=== PATIENT | male | born 1965 | race African-American/Black ===

== ENCOUNTER 2024-01-15 13:48 | Inpatient (IN) | payer SELFPAY ==
[~2024-01-15] VITALS: Ht 182.9 cm; Wt 76.7 kg
--- NOTE | 2024-01-15 14:45 | ED.PDOC ---
History of Present Illness HPI Comments 58 y/o M, with a Hx of CHF, HTN, and morbid obesity, is BIBA for c/o shortness of breath, productive cough, and wheezing, today. Per EMS report, patient endorses on having unprovoked onset of symptoms 2x weeks ago that has been progressively worsening since. Patient was found on scene by EMS staff with wheezing bilaterally in addition to being HTN and was given breathing Tx with relief en route. Upon arrival to ED and time of assessment, EMS states on patient having a blood pressure of 96/62. Patient reports no recent sick contact exposure amidst Hx of vacuum truck driver occupation. He denies any chest pain, dyspnea, hemoptysis, fever, chills or other associated symptoms or modifiers at this time. Chief Complaint: Shortness of Breath Time Seen by MD: 14:20 Reviewed Notes: Nurses Notes, Pneumatic Deicer Inspector Notes, Medications, Allergies Allergies: Coded Allergies: NO KNOWN ALLERGIES (Unverified , 01/15/24) Information Source: Patient, Emergency Med Personnel Mode of Arrival: EMS Severity: Moderate Timing: Weeks Duration: Since onset Prehospital treatment: 12 Lead EKG, Polishing Wheel Repairer, Oxygen Past Medical History PAST MEDICAL HISTORY: CHF, HTN Past Medical History (Other): morbid obesity, childhood-asthma Surgical History: Denies all surgeries Family History Family History: Unknown Social History Smoker: Non-Smoker Alcohol: Denies ETOH Use Drugs: Denies Drug Use Lives In: Home Respiratory: reports: cough, shortness of breath, wheezing All Other Systems: Reviewed and Negative (negative unless otherwise stated in HPI) Physical Exam General Appearance: Moderate Distress, Obese HEENT: Normal ENT Inspection, Pharynx Normal, TMs Normal Neck: Full Range of Motion, Non-Tender, Normal, Normal Inspection Respiratory: Chest Non-Tender, No Accessory Muscle Use, Other (Coarse breath sounds) Cardiovascular: No Edema, No JVD, No Murmur, No Gallop, Normal Peripheral Pulses, Regular Rate/Rhythm Breast Exam: Deferred Gastrointestinal: No Organomegaly, Non Tender, No Pulsatile Mass, Normal Bowel Sounds, Soft Genitalia: Deferred Pelvic: Deferred Rectal: Deferred Extremities: Pedal edema, Swelling (Bilateral lower extremity) Musculoskeletal : Apperance: Normal Neurologic: Alert Cerebellar Function: NOT DONE Reflexes: NOT DONE Skin: Normal Color Peripheral Pulses: 3+ Radial (R), 3+ Radial (L) Lymphatic: No Adenopathy Was a procedure done? Was a procedure done?: No Differential Dx Considerations may include: WA, ACS, PE, PNA, angina, anxiety, costochondritis, pericarditis, gastritis, gastroenteritis, URI X-Ray, Labs, Meds, VS Vital Signs Date Time Temp Pulse Resp B/P (MAP) Pulse Ox O2 Delivery O2 Flow Rate FiO2 01/15/24 13:55 94 01/15/24 13:50 98.2 98 24 158/116 (130) 97 Lab Test 01/15/24 14:19 Range/Units White Blood Count 8.1 4.4-10.8 10^3/uL Red Blood Count 5.59 4.5-5.90 10^6/uL Hemoglobin 14.8 13.5-17.5 g/dL Hematocrit 45.0 41.0-53.0 % Mean Corpuscular Volume 80.5 80.0-100.0 fL Mean Corpuscular Hemoglobin 26.5 L 28.0-32.0 pg Mean Corpuscular Hemoglobin Concent 32.9 32.0-36.0 g/dL Red Cell Distribution Width 15.6 H 11.8-14.3 % Platelet Count 366 140-450 10^3/uL Mean Platelet Volume 8.3 6.9-10.8 fL Neutrophils (%) (Auto) 68.4 37.0-80.0 % Lymphocytes (%) (Auto) 20.0 10.0-50.0 % Monocytes (%) (Auto) 9.1 0.0-12.0 % Eosinophils (%) (Auto) 1.3 0.0-7.0 % Basophils (%) (Auto) 1.2 0.0-2.0 % Neutrophils # (Auto) 5.5 1.6-8.6 10 ^3/uL Lymphocytes # (Auto) 1.6 0.4-5.4 10 ^3/uL Monocytes # (Auto) 0.7 0-1.3 10 ^3/uL Eosinophils # (Auto) 0.1 0-0.8 10 ^3/uL Basophils # (Auto) 0.1 0-0.2 10 ^3/uL Nucleated Red Blood Cells 0.3 % Sodium Level 141 136-145 mmol/L Potassium Level 4.8 3.5-5.1 mmol/L Chloride Level 105 98-107 mmol/L Carbon Dioxide Level 25 20-31 mmol/L Anion Gap 11 5-15 Blood Urea Nitrogen 18 9-23 mg/dL Creatinine 0.96 0.700-1.30 mg/dL Glomerular Filtration Rate Calc 92 >90 mL/min BUN/Creatinine Ratio 18.8 10.0-20.0 Serum Glucose 109 H 74-106 mg/dL Calcium Level 9.8 8.7-10.4 mg/dL Troponin I High Sensitivity 302 *H </=54 ng/L B-Type Natriuretic Peptide 3523.52 0-100 pg/mL Patient alert pain Complaining of shortness a breath. He is obese. Chest discomfort while walking. Blood pressure elevated pain Does not take care himself. Was given Lasix pain Bilateral lower extremity swelling. Chronic condition. CHF. Reviewed his previous visit. EKG reviewed does not show any acute changes. Explained to the patient. Continuous monitoring analyst. [place] [id number] Ph: [phone] DIAGNOSTIC IMAGING Diagnostic Imaging Report : [id number] Signed PATIENT: Lexx Ledesma ACCT: [id number] UNIT: [id number] : 1965 LOC: ER ROOM / BED: / AGE / SEX: 58 / M ADM STATUS: REG ER SERVICE 135 ORDERING PHYSICIAN: KHUSHI LEON MD PROCEDURE(s): CXRP - CHEST PORTABLE REASON: sob ORDER NUMBER(s): [id number], ACCESSION NUMBER(s): [id number] EXAM: XY CHEST PORTABLE Indication: sob Technique: Single frontal view of the chest was obtained Comparison: None FINDINGS: Lines and Tubes: None Lungs: No focal consolidation. Pleura: No effusion. No pneumothorax. Cardiomediastinal contours: Unremarkable Bones: No acute osseous abnormality. IMPRESSION: No acute cardiopulmonary disease. ATED BY: LARRY PACHECO MD DICTATED DATE/TIME: 01/15/241457 SIGNED BY: LARRY PACHECO MD SIGNED DATE/TIME: 01/15/241457 CC: Time of 1ST Reevaluation: 14:50 Reevaluation 1ST: Unchanged Patient Education/Counseling: Diagnosis, Treatment Family Education/Counseling: No Family Present Departure 1 Departure Time of Disposition: 14:51 Impression: Primary Impression: CHF (congestive heart failure) Qualified Codes: I50.43 - Acute on chronic combined systolic (congestive) and diastolic (congestive) heart failure Additional Impressions: HTN (hypertension) Qualified Codes: I10 - Essential (primary) hypertension NSTEMI (non-ST elevated myocardial infarction) Disposition: ADMITTED INPATIENT Admit to: Med Surg Condition: Guarded Critical Care Note Critical Care Time?: Yes (45 min-critical care time only) Stability Stability form required: No Heart Score Heart Score: Heart Score Response (Comments) Value History Moderate Suspicious 1 EKG Normal 0 Age 45-64 1 Risk Factors >3 or Hx ASHD 2 Troponin Normal limit 0 Total 4 I personally scribed for KHUSHI LEON MD ([email or web address]) on 01/15/24 at 14:45. Electronically submitted by Enrico Castillo ([email or web address]). I personally scribed for KHUSHI LEON MD (MAR) on 01/15/24 at 15:32. Electronically submitted by Enrico Castillo ([email or web address]). I personally scribed for KHUSHI LEON MD (MAR) on 01/15/24 at 17:01. Electronically submitted by Enrico Castillo ([email or web address]). KHUSHI LEON MD Jan 15, 2024 14:45
[2024-01-15 14:58] LABS: Basophils # (auto) 0.1 10 ^3/uL (0-0.2); Eosinophils # (auto) 0.1 10 ^3/uL (0-0.8); Lymphocytes # (auto) 1.6 10 ^3/uL (0.4-5.4)
--- NOTE | 2024-01-15 14:59 | DVH ---
EXAM: XY CHEST PORTABLE Indication: sob Technique: Single frontal view of the chest was obtained Comparison: None FINDINGS: Lines and Tubes: None Lungs: No focal consolidation. Pleura: No effusion. No pneumothorax. Cardiomediastinal contours: Unremarkable Bones: No acute osseous abnormality. IMPRESSION: No acute cardiopulmonary disease.
[2024-01-15 15:00] LABS: Basophils % (auto) 1.2 % (0.0-2.0); Eosinophils % (auto) 1.3 % (0.0-7.0); Hemoglobin 14.8 g/dL (13.5-17.5); Mean Corpuscular Hemoglobin 26.5 pg (28.0-32.0); Mean Corpuscular Hgb Conc. 32.9 g/dL (32.0-36.0); Mean Corpuscular Volume 80.5 fL (80.0-100.0); Monocytes # (auto) 0.7 10 ^3/uL (0-1.3); Monocytes % (auto) 9.1 % (0.0-12.0); Neutrophils # (auto) 5.5 10 ^3/uL (1.6-8.6); Neutrophils % (auto) 68.4 % (37.0-80.0); Nucleated Red Blood Cells % 0.3 %; Platelet Count (auto) 366 10^3/uL (140-450); Red Blood Cells 5.59 10^6/uL (4.5-5.90); Red Cell Distribution Width 15.6 % (11.8-14.3); White Blood Cell 8.1 10^3/uL (4.4-10.8)
[2024-01-15 15:03] LABS: Chloride 105 mmol/L (98-107); Potassium 4.8 mmol/L (3.5-5.1); Sodium 141 mmol/L (136-145)
[2024-01-15 15:04] LABS: Anion Gap 11 (5-15); Calcium 9.8 mg/dL (8.7-10.4); Carbon Dioxide 25 mmol/L (20-31)
[2024-01-15 15:09] LABS: BUN/Creatinine Ratio 18.8 (10.0-20.0); Blood Urea Nitrogen 18 mg/dL (9-23)
[2024-01-15 15:10] LABS: Glucose 109 mg/dL (74-106)
[2024-01-15] MEDS ORDERED: NITROGLYCERIN 0.4 MG SL TAB SL PRN ×2 (18:15)
[2024-01-15] MEDS ORDERED: ONDANSETRON HCL 4 MG/2 ML VIAL IV PRN (18:15)
[2024-01-15] MEDS ORDERED: ACETAMINOPHEN 325 MG TAB PO PRN (18:15)
[2024-01-15] MEDS ORDERED: MORPHINE SULFATE 4 MG/ML SYR/VIAL IV PRN (18:15)
[2024-01-15] MEDS ORDERED: MORPHINE SULFATE INJ 2 MG/ml SYRG IV PRN (18:15)
[2024-01-15] MEDS ORDERED: ZOLPIDEM TARTRATE 5 MG TAB PO PRN (18:15)
[2024-01-15] MEDS ORDERED: MAALOX PLUS or MAALOX 30 ML PO PRN (18:15)
[2024-01-15] MEDS ORDERED: LORazepam 0.5 MG TAB PO PRN (18:15)
--- NOTE | 2024-01-15 18:21 | DVHHP2 ---
History of Present Illness Reason for Visit: Acute on chronic CHF History of Present Illness 58-year-old morbidly obese male with a past medical history of CHF hypertension hyperlipidemia comes to the ED with complaints of cough shortness of breath which has been progressively getting worse patient states that his symptoms have worsened in his shortness of breath has worsened over the past 2 weeks associated with difficulty breathing and inability to ambulate at rest patient was evaluated in the ED and found to be hypotensive as well as hypoxic patient was recommended for evaluation and continued management and inpatient setting as per ED recommendations Cardiovascular: CHF, HTN, hyperipidemia Review of Systems Constitutional: Yes: Weakness; No: Fever, Chills, Sweats, Malaise, Other Eyes: No: Pain, Vision change, Conjunctivae inflammation, Eyelid inflammation, Other, Redness ENT: No: Ear pain, Ear discharge, Nose pain, Nose discharge, Nose congestion, Mouth pain, Mouth swelling, Throat pain, Throat swelling, Other Respiratory: No: Cough, Dry, Shortness of breath, SOB with excertion, Wheezing, Hemoptysis, Pleuritic Pain, Sputum, Wheezing, Other Cardiovascular: No: Chest Pain, Palpitations, Orthopnea, Paroxysmal Noc. Dyspnea, Edema, Lt Headedness, Other Gastrointestinal: No: Nausea, Vomiting, Abdominal Pain, Diarrhea, Constipation, Melena, Hematochezia, Other Genitourinary: No Dysuria, No Frequency, No Incontinence, No Hematuria, No Retention, No Other Musculoskeletal: No: other, neck pain, shoulder pain, arm pain, back pain, hand pain, leg pain, foot pain Skin: No: Rash, Lesions, Jaundice, Bruising, Other Neurological: No: Weakness, Numbness, Incoordination, Change in speech, Confusion, Seizures, Other Allergies: Coded Allergies: NO KNOWN ALLERGIES (Unverified , 01/15/24) Exam Vital Signs Vital Signs Date Time Temp Pulse Resp B/P (MAP) Pulse Ox O2 Delivery O2 Flow Rate FiO2 01/15/24 13:55 94 01/15/24 13:50 98.2 24 158/116 (130) 97 General Appearance: Alert, Oriented X3, mild distress HEENT: Atraumatic, PERRLA Respiratory: Clear to auscultation (Bilateral rhonchi mild), Normal air movement Cardiovascular: Regular rate, Normal S1 Abdominal: Normal bowel sounds, Soft, No tenderness Extremities: No clubbing, No cyanosis, No edema Skin: No rashes, No breakdown Neuro: Normal gait, Normal speech Psych/Mental Status: Mood NL Labs/Xrays Labs Test 01/15/24 14:19 Range/Units White Blood Count 8.1 4.4-10.8 10^3/uL Red Blood Count 5.59 4.5-5.90 10^6/uL Hemoglobin 14.8 13.5-17.5 g/dL Hematocrit 45.0 41.0-53.0 % Mean Corpuscular Volume 80.5 80.0-100.0 fL Mean Corpuscular Hemoglobin 26.5 L 28.0-32.0 pg Mean Corpuscular Hemoglobin Concent 32.9 32.0-36.0 g/dL Red Cell Distribution Width 15.6 H 11.8-14.3 % Platelet Count 366 140-450 10^3/uL Mean Platelet Volume 8.3 6.9-10.8 fL Neutrophils (%) (Auto) 68.4 37.0-80.0 % Lymphocytes (%) (Auto) 20.0 10.0-50.0 % Monocytes (%) (Auto) 9.1 0.0-12.0 % Eosinophils (%) (Auto) 1.3 0.0-7.0 % Basophils (%) (Auto) 1.2 0.0-2.0 % Neutrophils # (Auto) 5.5 1.6-8.6 10 ^3/uL Lymphocytes # (Auto) 1.6 0.4-5.4 10 ^3/uL Monocytes # (Auto) 0.7 0-1.3 10 ^3/uL Eosinophils # (Auto) 0.1 0-0.8 10 ^3/uL Basophils # (Auto) 0.1 0-0.2 10 ^3/uL Nucleated Red Blood Cells 0.3 % Sodium Level 141 136-145 mmol/L Potassium Level 4.8 3.5-5.1 mmol/L Chloride Level 105 98-107 mmol/L Carbon Dioxide Level 25 20-31 mmol/L Anion Gap 11 5-15 Blood Urea Nitrogen 18 9-23 mg/dL Creatinine 0.96 0.700-1.30 mg/dL Glomerular Filtration Rate Calc 92 >90 mL/min BUN/Creatinine Ratio 18.8 10.0-20.0 Serum Glucose 109 H 74-106 mg/dL Calcium Level 9.8 8.7-10.4 mg/dL Troponin I High Sensitivity 302 *H </=54 ng/L B-Type Natriuretic Peptide 3523.52 0-100 pg/mL Assessment/Plan Assessment/Plan Admit to [facility] Suspected Acute on chronic combined CHF exacerbation Possible NSTEMI versus troponinemia in the setting of cardiac stress for CHF Hypertension BNP greater than 3500 Troponin greater than 300 Trend troponins x3 and evaluated for an up trend Cardiology consult Chest pain protocol Diuretics management Patient will likely require fluids and simultaneously required diuretics for 3rd spacing management Chest x-ray showing no acute signs of cardiopulmonary disease However increased cardiac size noted Plan discussed with: Patient Problem List: (1) CHF (congestive heart failure) (2) NSTEMI (non-ST elevated myocardial infarction) (3) HTN (hypertension) Date of Service: Jan 15, 2024 Billing Provider: HONEY NORIEGA MD Common Visit Codes: 34548-[id number] INP/OBS CARE (HIGH) HONEY NORIEGA MD Jan 15, 2024 18:21
[2024-01-15] MEDS: ASPirin 325 MG TAB PO STA (20:22)
[2024-01-15 20:25] VITALS: O2SAT 98
[2024-01-16] VITALS (11 sets, daily range): BP systolic 137–166; BP diastolic 93–112; PULSE 81–99; RESP 18–22; TEMP 97.3–98.5; O2SAT 94–100
[2024-01-16] MEDS: ATORVASTATIN 20 MG TAB PO SCH (00:24)
[2024-01-16] MEDS: METOPROLOL TARTRATE 25 MG TAB PO SCH ×2 (00:30→21:45)
--- NOTE | 2024-01-16 06:42 | ECG ---
[facility] Test Date: 2024-01-15 Test Time: 13:55:36 Pat Name: ALMA TERRY Department: ED Room: 0294T A Gender: M Carry Out Clerk: IWONA : 1965 Requested By: KHUSHI LEON Order Number: [id number] Reading MD: Adalid Unger Measurements Intervals [place] Rate: 94 P: 10 GA: 183 QRS: -26 QRSD: 91 T: 159 QT: 423 QTc: 530 Interpretive Statements Sinus rhythm Probable left atrial enlargement Borderline left axis deviation Abnormal R-wave progression, late transition Nonspecific T abnormalities, lateral leads Prolonged QT interval Electronically Signed On 01-18-2024 12:39:05 PST by Adalid Unger Please click the below link to view image of tracing.
[2024-01-16] MEDS: DOCUSATE SOD 100 MG CAP PO SCH (08:52)
[2024-01-16] MEDS: ASPirin 81 mg TAB PO SCH (08:52)
[2024-01-16] MEDS: LISINOPRIL 5 MG TAB PO SCH (08:57)
[2024-01-16 09:07] LABS: Basophils # (auto) 0.1 10 ^3/uL (0-0.2); Lymphocytes # (auto) 1.7 10 ^3/uL (0.4-5.4); Monocytes # (auto) 0.7 10 ^3/uL (0-1.3)
[2024-01-16 09:09] LABS: Basophils % (auto) 0.9 % (0.0-2.0); Eosinophils # (auto) 0.2 10 ^3/uL (0-0.8); Eosinophils % (auto) 1.8 % (0.0-7.0); Hematocrit 43.9 % (41.0-53.0); Hemoglobin 14.5 g/dL (13.5-17.5); Lymphocytes % (auto) 20.3 % (10.0-50.0); Mean Corpuscular Hemoglobin 26.4 pg (28.0-32.0); Mean Corpuscular Volume 80.2 fL (80.0-100.0); Monocytes % (auto) 8.7 % (0.0-12.0); Neutrophils # (auto) 5.8 10 ^3/uL (1.6-8.6); Neutrophils % (auto) 68.3 % (37.0-80.0); Nucleated Red Blood Cells % 0.2 %; Platelet Count (auto) 377 10^3/uL (140-450); Red Blood Cells 5.48 10^6/uL (4.5-5.90); Red Cell Distribution Width 15.7 % (11.8-14.3); White Blood Cell 8.5 10^3/uL (4.4-10.8)
[2024-01-16] MEDS ORDERED: hydrALAZINE HCL 20 MG/ML VL IV PRN (09:15)
[2024-01-16 09:17] LABS: Anion Gap 5 (5-15); Calcium 9.7 mg/dL (8.7-10.4); Carbon Dioxide 27 mmol/L (20-31); Potassium 4.8 mmol/L (3.5-5.1); Sodium 141 mmol/L (136-145)
[2024-01-16 09:23] LABS: Magnesium 2.1 mg/dL (1.6-2.6); Triglycerides 68 mg/dL (< 150)
[2024-01-16 09:24] LABS: Blood Urea Nitrogen 24 mg/dL (9-23); Chloride 109 mmol/L (98-107); Cholesterol 114 mg/dL (< 200); Glucose 117 mg/dL (74-106); LDL Cholesterol 73 mg/dL (< 100)
[2024-01-16 09:26] LABS: HDL Cholesterol 30 mg/dL (40-59)
--- NOTE | 2024-01-16 10:12 | DVHINCON2 ---
Date Seen: Jan 16, 2024 Referring Physician MD Yessy Reason for Consultation Chest pain and elevated troponin History of Present Illness This is a 58-year-old male patient who presents to the emergency room with chief complaint of shortness of breath and cough for approximately 10 days. The patient denies any chest pain. He admits to dyspnea on exertion as well as orthopnea. 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 He comes to the emergency room for further evaluation. Initial twelve lead electrocardiogram reveals normal sinus rhythm with nonspecific ST changes to lateral leads in prolonged QTc interval. Initial troponin level of 302ng/L with downtrend thereafter. Initial BNP level of 3523.52pg/mL. Significant past medical history includes asthma, pancreatitis in 2017, tobacco use, and obesity. The patient denies any previous cardiac history. He reports that he does not see a primary care physician regularly and the last time he was seen by a provider was in 2017 when he was diagnosed with pancreatitis and hospitalized. Past Medical History Past medical history reviewed. No other significant than mentioned above. Past Surgical History Denies all previous surgeries Family History: Patient reports no known family medical history. Family History Family history reviewed. Social History Patient has a 45 pack-year history, smokes one pack per day Denies all illicit drug use Denies any alcohol use Allergies: Coded Allergies: NO KNOWN ALLERGIES (Unverified , 01/15/24) Home Meds No Active Prescriptions or Reported Meds Home Meds Denies taking any prescribed home medications Current Medications Current Medications Medications (Trade) Dose Ordered Sig/Von Route PRN Reason Start Time Stop Time Status Last Admin Aspirin 81 mg DAILY PO 01/16/24 10:00 01/16/24 08:52 Aspirin 325 mg PC STAT PO 01/15/24 18:11 01/15/24 19:05 DC 01/15/24 20:22 Atorvastatin Calcium (Lipitor) 40 mg HS PO 01/15/24 22:00 01/16/24 00:24 Metoprolol Tartrate (Lopressor Tablet) 12.5 mg Q12HR PO 01/15/24 22:00 01/16/24 08:55 Morphine Sulfate 2 mg Q30MP PRN IV FOR CHEST PAIN 01/15/24 18:15 01/15/24 19:06 DC Acetaminophen (Tylenol Tablet) 650 mg Q6HP PRN PO MILD PAIN (1-3 PAIN SCALE) 01/15/24 18:15 Zolpidem Tartrate (Ambien) 5 mg QHSP PRN PO FOR INSOMNIA 01/15/24 18:15 Lorazepam (Ativan Tablet) 0.5 mg Q6HP PRN PO ANXIETY 01/15/24 18:15 Docusate Sodium (Colace Capsule) 100 mg DAILY PO 01/16/24 10:00 01/16/24 08:52 Nitroglycerin (Ntrostat Sublingual) 0.4 mg Q5MINP PRN SL FOR CHEST PAIN 01/15/24 18:15 01/15/24 19:06 DC Ondansetron HCl (Zofran) 4 mg Q4HP PRN IV NAUSEA / VOMITING 01/15/24 18:15 Al Hydrox/Mg Hydrox/Simethicone (Maalox Plus) 30 ml Q6HR PRN PO FOR STOMACH DISTRESS 01/15/24 18:15 Lisinopril (Zestril Tablet) 10 mg DAILY PO 01/16/24 10:00 Nitroglycerin (Ntrostat Sublingual) 0.4 mg Q5MINP PRN SL FOR CHEST PAIN 01/15/24 18:15 Morphine Sulfate 2 mg Q30M PRN IV FOR CHEST PAIN 01/15/24 18:15 Hydralazine HCl (Apresoline Injection) 10 mg Q6HP PRN IV SBP>150 01/16/24 09:15 Review of Systems Constitutional: No symptom reported Ears, Nose, & Throat: No symptom reported Eyes: No symptom reported Neurological: No symptoms reported Pulmonary/Respiratory: Shortness of breath, orthopnea, cough Cardiovascular: No symptom reported Gastrointestinal: No symptom reported Genitourinary: No symptom reported Musculoskeletal: No symptom reported Skin: No symptom reported Psychiatric: No symptom reported Endocrine: No symptom reported Hematologic/Lymphatic: No symptom reported Vital Signs Vital Signs Date Time Temp Pulse Resp B/P (MAP) Pulse Ox O2 Delivery O2 Flow Rate FiO2 01/16/24 08:55 85 150/106 01/16/24 08:33 98.2 21 100 98.2 01/16/24 02:52 Nasal Cannula* 2 28 Physical Exam General Appearance: Cooperative. Obese Pulmonary/Respiratory: Bilateral upper lobe wheezing Cardiovascular/Chest: Regular rate and rhythm. Peripheral Pulses: 2+ Radial (R). 2+ Radial (L). 1+ Pedal (R). 1+ Pedal (L) Abdominal Exam: Normal bowel sounds. Ankle Exam: 4+ pitting edema to bilateral ankles Lower extremities: 4+ pitting edema to bilateral feet Neuro/Mental Status: A/OX4, coherent. Thoughts/Psych: Normal thought pattern. Appropriate mood and affect. Good judgment and insight. Appearance: No acute distress. Skin Exam: Open wound to right calf. Skin warm and dry Labs/Diagnostic Data Labs Test 01/16/24 08:38 01/15/24 20:48 01/15/24 14:19 Range/Units White Blood Count 8.5 4.4-10.8 10^3/uL Red Blood Count 5.48 4.5-5.90 10^6/uL Hemoglobin 14.5 13.5-17.5 g/dL Hematocrit 43.9 41.0-53.0 % Mean Corpuscular Volume 80.2 80.0-100.0 fL Mean Corpuscular Hemoglobin 26.4 L 28.0-32.0 pg Mean Corpuscular Hemoglobin Concent 33.0 32.0-36.0 g/dL Red Cell Distribution Width 15.7 H 11.8-14.3 % Platelet Count 377 140-450 10^3/uL Mean Platelet Volume 8.2 6.9-10.8 fL Neutrophils (%) (Auto) 68.3 37.0-80.0 % Lymphocytes (%) (Auto) 20.3 10.0-50.0 % Monocytes (%) (Auto) 8.7 0.0-12.0 % Eosinophils (%) (Auto) 1.8 0.0-7.0 % Basophils (%) (Auto) 0.9 0.0-2.0 % Neutrophils # (Auto) 5.8 1.6-8.6 10 ^3/uL Lymphocytes # (Auto) 1.7 0.4-5.4 10 ^3/uL Monocytes # (Auto) 0.7 0-1.3 10 ^3/uL Eosinophils # (Auto) 0.2 0-0.8 10 ^3/uL Basophils # (Auto) 0.1 0-0.2 10 ^3/uL Nucleated Red Blood Cells 0.2 % Sodium Level 141 136-145 mmol/L Potassium Level 4.8 3.5-5.1 mmol/L Chloride Level 109 H 98-107 mmol/L Carbon Dioxide Level 27 20-31 mmol/L Anion Gap 5 5-15 Blood Urea Nitrogen 24 H 9-23 mg/dL Creatinine 1.09 0.700-1.30 mg/dL Glomerular Filtration Rate Calc 79 >90 mL/min BUN/Creatinine Ratio 22.0 H 10.0-20.0 Serum Glucose 117 H 74-106 mg/dL Calcium Level 9.7 8.7-10.4 mg/dL Magnesium Level 2.1 1.6-2.6 mg/dL Triglycerides Level 68 < 150 mg/dL Cholesterol Level 114 < 200 mg/dL LDL Cholesterol 73 < 100 mg/dL HDL Cholesterol 30 L 40-59 mg/dL Thyroid Stimulating Hormone (TSH) 0.94 0.55-4.78 uIU/mL Troponin I High Sensitivity 269 *H </=54 ng/L B-Type Natriuretic Peptide 3523.52 0-100 pg/mL Assessment Rule out structural heart disease Hypertensive urgency NSTEMI type II secondary to above Type II diabetes mellitus, newly diagnosed Tobacco use Morbid obesity Plan/Recommendation We will continue with the following plan/recommendations (Dr. Herron): * Echocardiogram to evaluate cardiac function * Aggressive BP control * Aggressive diuresis as tolerated * Strict intake and output, daily weights, maintain fluid restriction * Cardiac surveillance Patient seen and examined at bedside with . Thank you for allowing us to care for this patient. Please call with any questions or concerns. Critical care time spent: 41 minutes This medical document was created using an electronic medical record system with voice recognition software and computerized dictation system. Although this document has been carefully reviewed, there might still be some phonetic and typographical errors. Occasional wrong-word or ``sound-alike substitutions may have occurred due to the inherent limitations of voice recognition software. These areas are purely typographical due to imperfections of the software programs and do not reflect any compromise in the patient's medical care. Please read the chart carefully and recognize, using context, where these substitutions have occurred. Plan discussed with: Patient Date of Service: Jan 16, 2024 Billing Provider: GERONIMO HERRON MD Cardiology Common Codes: 02909-[id number] INP/OBS CARE (High) Cardiology Consultation Codes: [id number] CONSULT <45MIN BILL GARZA Jan 16, 2024 10:12
[2024-01-16] MEDS: FUROSEMIDE 20 MG/2 ML VIAL IV ONE (10:35)
--- NOTE | 2024-01-16 14:43 | DVHPN2 ---
Assessment/Plan Assessment/Plan Progress note Subjective 58-year-old male smoker admitted for new onset heart failure. Objective Physical exam Alert, oriented x3 PERRLA Morbidly obese Distant lung sounds Distant heart sounds Abdomen soft nontender, no organomegaly Moving all four extremities Bilateral lower extremity edema to thigh with blisters Lab Troponin 302 BNP 3500 LDL 73 A1c 6.6 EKG NSR with nonspecific STT wave abnormalities Imaging Chest x-ray clear Echo pending Assessment and plan Acute hypoxic respiratory failure Acute decompensated heart failure New onset heart failure Hypertensive urgency Hypertensive heart disease Smoker Morbidly obese Type 2 diabetes Type 2 [place] demand ischemia Possible sleep apnea Maintain SpO2 above 90% Telemetry IV Lasix, target -1-2 L Start Jardiance Switch metoprolol tartrate to succinate Nicotine replacement therapy Insulin sliding scale, fingerstick x4 Strict I&O Daily weights Obtain echo Cardiac consult appreciated BiPAP at night Replete electrolytes Diet healthy, diabetic DVT prophylaxis Lovenox Plan discussed with: Patient My Orders Orders - TASHIA BOWER MD Procedure Category Date Status Time * Wound Consult CONS 01/16/24 Transmitted Date of Service: Jan 16, 2024 Billing Provider: TASHIA BOWER MD Common Visit Codes: [id number] INP/OBS CARE(HIGH) TASHIA BOWER MD Jan 16, 2024 14:43
--- NOTE | 2024-01-16 17:08 | DVHSR ---
APPROVED REPORT EXAM: Two-dimensional and M-mode echocardiogram with Doppler and color Doppler. Blood Pressure: 149/100 mmHg INDICATION evaluate cardiac function RISK FACTORS Obesity: Height: 6'0, Weight: 328 DIMENSIONS LVDd6.0 (3.8-5.7cm)LA (2D)4.2 (1.9-4.0cm)Aortic Root4.3 (2.0-3.7cm) LVDs5.6 (2.5-4.0cm)LA (MM) (1.9-4.0cm)Aortic Cusp Exc1.8 (1.5-2.0cm) EF (%) 15.0 (55-70%)Rt. Atrium5.0 (1.9-4.0cm)Asc. Aorta3.7 cm IVSd1.0 (0.7-1.1cm)RV (D) (1.8-2.4cm) PWd1.2 (0.7-1.1cm) Mitral Valve MitralMitral Stenosis E wave0.92m/sMV Mean GR.mmHg A wave0.82m/sMV Peak GR.67mmHg E/A ratio1.12D MVAcm2 DECEL [id number] 1/2 Timems Aortic Valve Aortic ValveAortic Stenosis V10.63m/Morris Mean GR.3mmHg V21.17m/Morris Peak GR.6mmHg LVOT Diameter2.4 (1.8-2.4cm)Doppler AVA2.43cm2 AI P 1/2 Lwoa144.38ms Pulmonic Valve V20.73m/s Tricuspid Valve TR Velocity2.65m/s [id number] Conclusion Severely dilated left ventricle. Severely reduced left ventricular systolic function with estimated ejection fraction of 15%. There is global wall akinesia. There is a grade 2diastolic dysfunction. Severely reduced right ventricular systolic function. Moderately elevated right ventricular systoli c pressure is45 mm of mercury. Moderately dilated right and left atria. There is moderately severe aortic valve regurgitation. There is [id number] mitral valve regurgitation. There is [id number] tricuspid valve regurgitation. The pulmonary valve is grossly normal. No pericardial effusion.
[2024-01-16] MEDS: FUROSEMIDE 20 MG/2 ML VIAL IV SCH (17:32)
[2024-01-16] MEDS: SENNA 8.6 MG TAB PO SCH (21:39)
[2024-01-17] VITALS (8 sets, daily range): BP systolic 124–160; BP diastolic 57–114; PULSE 68–93; RESP 16–20; TEMP 97.8–98.8; O2SAT 98–100
[2024-01-17 06:12] LABS: Basophils # (auto) 0.1 10 ^3/uL (0-0.2); Lymphocytes # (auto) 1.5 10 ^3/uL (0.4-5.4); Mean Corpuscular Hemoglobin 25.9 pg (28.0-32.0); Monocytes # (auto) 0.7 10 ^3/uL (0-1.3)
[2024-01-17 06:14] LABS: Basophils % (auto) 0.7 % (0.0-2.0); Eosinophils # (auto) 0.3 10 ^3/uL (0-0.8); Eosinophils % (auto) 3.2 % (0.0-7.0); Hematocrit 41.6 % (41.0-53.0); Hemoglobin 13.4 g/dL (13.5-17.5); Lymphocytes % (auto) 19.4 % (10.0-50.0); Mean Corpuscular Hgb Conc. 32.1 g/dL (32.0-36.0); Mean Corpuscular Volume 80.8 fL (80.0-100.0); Neutrophils # (auto) 5.4 10 ^3/uL (1.6-8.6); Neutrophils % (auto) 67.7 % (37.0-80.0); Nucleated Red Blood Cells % 0.3 %; Platelet Count (auto) 354 10^3/uL (140-450); Red Blood Cells 5.15 10^6/uL (4.5-5.90); Red Cell Distribution Width 15.5 % (11.8-14.3)
[2024-01-17 06:22] LABS: Anion Gap 6 (5-15); Carbon Dioxide 29 mmol/L (20-31); Chloride 107 mmol/L (98-107); Potassium 4.9 mmol/L (3.5-5.1); Sodium 142 mmol/L (136-145)
[2024-01-17 06:23] LABS: Calcium 9.2 mg/dL (8.7-10.4)
[2024-01-17 06:30] LABS: Phosphorus 4.6 mg/dL (2.4-5.1)
[2024-01-17 06:36] LABS: Glucose 120 mg/dL (74-106)
[2024-01-17 07:49] LABS: BUN/Creatinine Ratio 19.8 (10.0-20.0); Blood Urea Nitrogen 20 mg/dL (9-23)
--- NOTE | 2024-01-17 10:08 | DVHPN2 ---
Consult Progress Note Subjective Other Systems: Patient remains in normal sinus rhythm on continuous engine monitor. Objective vital signs Vital Sign Date Time Temp Pulse Resp B/P (MAP) Pulse Ox O2 Delivery O2 Flow Rate FiO2 01/17/24 09:00 97.9 85 20 142/57 (85) 100 97.9 01/16/24 20:00 Nasal Cannula* 3 32 Total Intake and Output 01/16/24 01/16/24 01/17/24 15:00 23:00 07:00 Intake Total 800 ml 1300 ml Output Total 1200 ml 900 ml Balance -400 ml 400 ml medications Current Medications Medications Dose Ordered Sig/Von Route Start Time Stop Time Status Last Admin Dose Admin Aspirin 81 mg DAILY PO 01/16/24 10:00 01/16/24 08:52 81 MG Atorvastatin Calcium 40 mg HS PO 01/15/24 22:00 01/16/24 21:42 40 MG Acetaminophen 650 mg Q6HP PRN PO 01/15/24 18:15 Al Hydrox/Mg Hydrox/Simethicone 30 ml Q6HR PRN PO 01/15/24 18:15 Furosemide 20 mg BIDD IV 01/16/24 18:00 01/17/24 06:23 20 MG Empaglifozin 10 mg DAILY PO 01/17/24 10:00 Sennosides 8.6 mg HS PO 01/16/24 22:00 01/16/24 21:39 8.6 MG Polyethylene Glycol 17 gm DAILY PO 01/17/24 10:00 Metoprolol Succinate 25 mg DAILY PO 01/17/24 10:00 Sacubitril/ Valsartan 1 tab BID PO 01/17/24 10:00 UNV Spironolactone 25 mg DAILY PO 01/17/24 10:00 Examination: GENERAL:Normal, LUNGS:Normal, CVS:Normal, NEURO:Normal laboratory and microbiology Laboratory Tests 01/17/24 05:04 Test 01/17/24 05:04 Range/Units Serum Glucose 120 H 74-106 mg/dL Problem List/Assessment/Plan Problem List/Assessment/Plan NSTEMI, rule out coronary artery disease Acute on chronic decompensated HFrEF, NYHA class III, newly diagnosed Hypertensive urgency Aortic valve regurgitation, moderately severe degree Type II diabetes mellitus, newly diagnosed (Hgb A1c 6.6%) Tobacco use Morbid obesity Plan/Recommendation (Dr. Herron): * Echocardiogram reveals EF 15%, RVSP 45mmHg * Initiate GDMT for CHF as tolerated * Aggressive BP control * Aggressive diuresis as tolerated * Strict intake and output, daily weights, maintain fluid restriction * Cardiac surveillance Case discussed with . Given that the patient has newly diagnosed HFrEF, we we will recommend for ischemic workup. The procedure was discussed with the patient full detail including risks and benefits. Risks include but not limited to bleeding, contrast induced nephropathy, stroke, and even . The patient understands and is agreeable to undergo the procedure. We will schedule the patient at first availability on 01/18/2024. Thank you for allowing us to care for this patient. Please call with any questions or concerns. This medical document was created using an electronic medical record system with voice recognition software and computerized dictation system. Although this document has been carefully reviewed, there might still be some phonetic and typographical errors. Occasional wrong-word or ``sound-alike substitutions may have occurred due to the inherent limitations of voice recognition software. These areas are purely typographical due to imperfections of the software programs and do not reflect any compromise in the patient's medical care. Please read the chart carefully and recognize, using context, where these substitutions have occurred. Plan discussed with: Patient Date of Service: Jan 17, 2024 Billing Provider: GERONIMO HERRON MD Common Visit Codes: [id number] INP/OBS CARE(HIGH) BILL GARZA TUGBOAT CAPTAIN Jan 17, 2024 10:08
[2024-01-17] MEDS: POLYETHYLENE GLYCOL 17 GM PWDR PO SCH (10:09)
[2024-01-17] MEDS: SPIRONOLACTONE 25 MG TAB PO SCH (10:11)
[2024-01-17] MEDS: METOPROLOL SUCCINATE XL 50 MG TAB PO SCH (10:11)
[2024-01-17] MEDS: EMPAGLIFLOZIN 10 MG TAB PO SCH (10:12)
--- NOTE | 2024-01-17 14:02 | DVHPN2 ---
Assessment/Plan Assessment/Plan Progress note Subjective 58-year-old male smoker admitted for new onset heart failure. Patient is seen by me today during rounds. Echo with HFrEF, planned for ischemic workup tomorrow by cardio. c/w diuresis Objective Physical exam Alert, oriented x3 PERRLA Morbidly obese Distant lung sounds Distant heart sounds Abdomen soft nontender, no organomegaly Moving all four extremities Bilateral lower extremity edema to thigh with blisters Lab Troponin 302 BNP 3500 LDL 73 A1c 6.6 EKG NSR with nonspecific STT wave abnormalities Imaging Chest x-ray clear Echo HFrEF 15% DCM Assessment and plan Acute hypoxic respiratory failure Acute decompensated systolic heart failure New onset heart failure with reduced EF cannot rule out ischemic CM Hypertensive urgency Hypertensive heart disease Smoker Morbidly obese Type 2 diabetes Type 2 [place] demand ischemia Possible sleep apnea Maintain SpO2 above 90% Telemetry IV Lasix, target -1-2 L c/w Jardiance, metop succinate start entresto (did not receive lisinopril) Nicotine replacement therapy Insulin sliding scale, fingerstick x4 Strict I&O Daily weights Obtain echo Cardiac consult appreciated BiPAP at night plan for C tomorrow Replete electrolytes Diet healthy, diabetic DVT prophylaxis Lovenox Plan discussed with: Patient My Orders Orders - TASHIA BOWER MD Procedure Category Date Status Time Empagliflozin PHA 01/17/24 In Process (Jardiance) 10:00 Senna Pod Tablet PHA 01/16/24 In Process (Senokot Tablet) 22:00 Polyethylene Glycol PHA 01/17/24 In Process 17g Powder (Miralax 10:00 Metoprolol Xl PHA 01/17/24 In Process Succinate (Toprol Xl) 10:00 Sacubitril-Valsartan PHA 01/17/24 In Process (Entresto 24-26 Mg 10:00 Spironolactone PHA 01/17/24 In Process (Aldactone) 10:00 Cover Wound With Foam RED 01/17/24 In Process Dressing 10:58 Date of Service: Jan 17, 2024 Billing Provider: TASHIA BOWER MD Common Visit Codes: [id number] INP/OBS CARE(HIGH) TASHIA BOWER MD Jan 17, 2024 14:02
[2024-01-17] MEDS: SACUBITRIL-VALSARTAN 24mg/26mg TAB PO SCH (15:11)
[2024-01-17 16:15] LABS: Amphetamine Screen, Urine Neg (NEGATIVE); Barbiturate Scree,Urine Neg (NEGATIVE); Benzodiazephine Screen, Urine Neg (NEGATIVE); Cannabinoid Screen, Urine Neg (NEGATIVE); Cocaine Screen, Urine Neg (NEGATIVE); Opiate Scree,Urine Neg (NEGATIVE); Phencyclidine Screen, Urine Neg (NEGATIVE)
[2024-01-18] VITALS (11 sets, daily range): BP systolic 126–150; BP diastolic 81–99; PULSE 80–98; RESP 17–21; TEMP 97.5–98.7; O2SAT 90–100
[2024-01-18 07:09] LABS: Basophils # (auto) 0.1 10 ^3/uL (0-0.2); Eosinophils # (auto) 0.3 10 ^3/uL (0-0.8); Hematocrit 42.6 % (41.0-53.0); Lymphocytes # (auto) 1.7 10 ^3/uL (0.4-5.4); Lymphocytes % (auto) 19.8 % (10.0-50.0); Monocytes # (auto) 0.7 10 ^3/uL (0-1.3)
[2024-01-18 07:13] LABS: Anion Gap 7 (5-15); Chloride 105 mmol/L (98-107)
[2024-01-18 07:14] LABS: Calcium 9.4 mg/dL (8.7-10.4); Carbon Dioxide 34 mmol/L (20-31); Eosinophils % (auto) 3.2 % (0.0-7.0); Hemoglobin 13.6 g/dL (13.5-17.5); Mean Corpuscular Hemoglobin 25.7 pg (28.0-32.0); Mean Corpuscular Hgb Conc. 31.9 g/dL (32.0-36.0); Mean Corpuscular Volume 80.5 fL (80.0-100.0); Monocytes % (auto) 8.5 % (0.0-12.0); Neutrophils # (auto) 5.7 10 ^3/uL (1.6-8.6); Neutrophils % (auto) 67.5 % (37.0-80.0); Nucleated Red Blood Cells % 0.1 %; Platelet Count (auto) 355 10^3/uL (140-450); Red Blood Cells 5.29 10^6/uL (4.5-5.90); Red Cell Distribution Width 15.5 % (11.8-14.3); Sodium 146 mmol/L (136-145); White Blood Cell 8.4 10^3/uL (4.4-10.8)
[2024-01-18 07:19] LABS: BUN/Creatinine Ratio 17.2 (10.0-20.0); Blood Urea Nitrogen 16 mg/dL (9-23)
[2024-01-18 07:21] LABS: Glucose 109 mg/dL (74-106)
[2024-01-18 07:47] LABS: INR 1.13 (0.9-1.15); Partial Thromboplastin Time 24.5 SEC (24.5-34.5); Prothrombin Time 11.9 sec (9.3-11.8)
[2024-01-18] MEDS: IODIXANOL 320MG/ML 100ML BTL IV ONE (09:05)
[2024-01-18] MEDS: ANGIOMAX 250 MG VIAL IV ONE (10:27)
[2024-01-18] MEDS: MIDAZOLAM HCL 2MG/2ML 2ml VIAL (1mg/ml) ONE (10:28)
[2024-01-18] MEDS: fentaNYL CITRATE 100 MCG/2 ML VL ONE (10:28)
[2024-01-18] MEDS: LIDOCAINE 2%HCL (LOCAL ANESTH.) INJ 20ML MDV ONE (10:28)
[2024-01-18] MEDS: SODIUM CHL 0.9% 50 ML ONE (10:28)
[2024-01-18] MEDS: HEPARIN SODIUM (PORCINE) 5000 UNITS/ML 1ML VIAL ONE (10:36)
[2024-01-18] MEDS: VERAPAMIL 2.5MG/ML INJ 2ML VIAL IV ONE (10:37)
--- NOTE | 2024-01-18 11:20 | DVHOP2 ---
Operative Report -Cardiology Report Details Date: 01/18/24 Preop Diagnosis: Severely reduced left ventricular ejection fraction with the ejection fraction estimated at 15% coronary angiography was indicated to rule out ischemic heart disease Postop Diagnosis: Coronary angiography revealed no obstructive coronary artery disease but sluggish flow. Surgeon: Joanna Jones MD Anesthesiologist: Conscious sedation using25 mcg of fentanyl as well as a mg midazolam tricuspid valve supervision of myself the presence of attending nurses. Patient was monitored for35 minutes without obvious complication. Anesthesia: Local Consent: The patient was informed of the risks and benefits of the procedure. These include but are not limited to complications of anesthesia, postoperative infection, incomplete relief of symptoms, recurrence of symptoms, damage to blood vessels, nerves and tendons, deep venous thrombosis, pulmonary embolism and possible need for repeat surgery in the future. Indications for Surgery: This is a 58-year-old male patient who presents to the emergency room with chief complaint of shortness of breath and cough for approximately 10 days. The patient denies any chest pain. He admits to dyspnea on exertion as well as orthopnea. 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 He comes to the emergency room for further evaluation. Initial twelve lead electrocardiogram reveals normal sinus rhythm with nonspecific ST changes to lateral leads in prolonged QTc interval. Initial troponin level of 302ng/L with downtrend thereafter. Initial BNP level of 3523.52pg/mL. Significant past medical history includes asthma, pancreatitis in 2017, tobacco use, and obesity. The patient denies any previous cardiac history. He reports that he does not see a primary care physician regularly and the last time he was seen by a provider was in 2017 when he was diagnosed with pancreatitis and hospitalized. Echocardiogram shows reduced severely reduced left ventricular ejection fraction of 15% Name of Procedure Performed 1. Left heart catheterization with left ventricular end-diastolic pressure measurement. 2. Selective right and left coronary angiography utilizing right transradial approach. 3. Conscious sedation using25 mcg of fentanyl as well as a mg of midazolam Procedure Details Procedure Details: Procedure note the vascular access: After informed consent was obtained, risks, benefits, complications, and alternatives were discussed in details with the patient who agrees to have the procedure done. At the beginning of the procedure, the right wrist and right groin area were prepped and draped in regular sterile fashion. Patient received conscious sedation with25 mcg of fe ntanyl as low as well as1 mg IV midazolam. Thereafter, total of2 cc of 1% xylocaine was given locally to the right wrist area before six [place] sheath was placed using modified Seldinger technique without difficulty. A cocktail of 2.5 mg of verapamil as well as 100 mcg of nitroglycerin were given intra-arterial to prevent vasospasm. Findings were as follows: 1. Left heart catheterization with left ventricular end-diastolic pressure measurement: With the help of a tiger five [place] catheter as well as a [email or web address] Textbook Time J-tip wire we were able to cross the aortic valve and measured left ventricular end-diastolic pressure which was elevated at 37 mm of mercury indicating severe diastolic heart failure. There was no gradient across the aortic valve indicative of aortic valve stenosis. 2. Selective right and left coronary angiography utilizing right transradial approach: With the help of valve same tiger [place] catheter were able to cross the aortic root and engaged the right and left coronary system respectively findings were as follows: 1. The right coronary artery comes off the right coronary cusp it is a large dominant system bifurcated distally into large posterior descending artery as was a large posterolateral branch. It has no significant stenosis. 2. The left main comes off the left coronary cusp, it is widely patent bifurcat ed distally into large left anterior descending artery as well as medium-sized left circumflex vessel, the left main is free of any significant disease. 3. Left anterior descending artery is a large with transapical course , it gives rise to two large diagonal branches without significant atherosclerotic plaquing or stenosis. 4. The left circumflex vessel is medium-sized vessel it provides two obtuse marginal branches and it has no significant discrete stenosis. Impression and plan: 1. The patient presentation likely in keeping with nonischemic cardiomyopathy at this coronary artery are free of any significant atherosclerotic plaquing. 2. Patient has underlying severe systolic as well as diastolic heart failure proven by high LVEDP of37 mm of mercury. 3. Patient would need aggressive medical therapy with the goal-directed therapy, patient might need a life vest given reduced ejection fraction and regular follow-up in the outpatient clinic for consideration of an ICD as an outpatient should his ejection fraction remains below 30. Condition Good Disposition JOANNA JONES MD Jan 18, 2024 11:20
--- NOTE | 2024-01-18 14:02 | DVHPN2 ---
Assessment/Plan Assessment/Plan Progress note Subjective 58-year-old male smoker admitted for new onset heart failure. Patient is seen by me today during rounds. s/p LHC with no significant stenosis. c/w diuresis Objective Physical exam Alert, oriented x3 PERRLA Morbidly obese Distant lung sounds Distant heart sounds Abdomen soft nontender, no organomegaly Moving all four extremities Bilateral lower extremity edema to thigh with blisters Lab Troponin 302 BNP 3500 LDL 73 A1c 6.6 EKG NSR with nonspecific STT wave abnormalities Imaging Chest x-ray clear Echo HFrEF 15% DCM Assessment and plan Acute hypoxic respiratory failure Acute decompensated systolic heart failure New onset heart failure with reduced EF NICM Hypertensive urgency Hypertensive heart disease Smoker Morbidly obese Type 2 diabetes Type 2 [place] demand ischemia Possible sleep apnea Maintain SpO2 above 90% Telemetry IV Lasix, target -1-2 L c/w Jardiance, metop succinate c/w entresto aldactone Nicotine replacement therapy Insulin sliding scale, fingerstick x4 Strict I&O Daily weights Cardiac consult appreciated BiPAP at night [facility] nonobs Replete electrolytes Diet healthy, diabetic DVT prophylaxis Lovenox Plan discussed with: Patient Date of Service: Jan 18, 2024 Billing Provider: TASHIA BOWER MD Common Visit Codes: [id number] INP/OBS CARE(HIGH) TASHIA BOWER MD Jan 18, 2024 14:02
[2024-01-19] VITALS (16 sets, daily range): BP systolic 128–151; BP diastolic 79–97; PULSE 83–97; RESP 16–22; TEMP 98–98.5; O2SAT 92–100
[2024-01-19 06:31] LABS: Anion Gap 7 (5-15); Calcium 9.3 mg/dL (8.7-10.4); Chloride 104 mmol/L (98-107); Sodium 143 mmol/L (136-145)
[2024-01-19 06:36] LABS: Carbon Dioxide 32 mmol/L (20-31)
[2024-01-19 06:37] LABS: BUN/Creatinine Ratio 17.5 (10.0-20.0); Blood Urea Nitrogen 17 mg/dL (9-23); Glucose 121 mg/dL (74-106)
[2024-01-19 09:29] LABS: Base Excess 3.3 mmol/L (-2.0-3.0)
--- NOTE | 2024-01-19 11:02 | DVH ---
EXAM: XR Chest, 1 View CLINICAL INDICATION: interval TECHNIQUE: Frontal view of the chest. COMPARISON: XY CHEST PORTABLE on DOS: 01/15/24 FINDINGS: LUNGS AND PLEURAL SPACES: See below. HEART: Cardiomegaly with pulmonary congestion and edema. Superimposed pneumonia cannot be excluded. MEDIASTINUM: Unremarkable. Normal mediastinal contour. BONES/JOINTS: Unremarkable. No acute fracture. OTHER FINDINGS: . . IMPRESSION: Cardiomegaly with pulmonary congestion and edema. Superimposed pneumonia cannot be excluded. HS:Y
--- NOTE | 2024-01-19 13:34 | DVHPN2 ---
Assessment/Plan Assessment/Plan Progress note Subjective 58-year-old male smoker admitted for new onset heart failure. Patient is seen by me today during rounds. will increase lasix dose, titrate O2 Objective Physical exam Alert, oriented x3 PERRLA Morbidly obese Distant lung sounds Distant heart sounds Abdomen soft nontender, no organomegaly Moving all four extremities Bilateral lower extremity edema to thigh with blisters Lab Troponin 302 BNP 3500 LDL 73 A1c 6.6 EKG NSR with nonspecific STT wave abnormalities Imaging Chest x-ray clear Echo HFrEF 15% DCM Assessment and plan Acute hypoxic respiratory failure Acute decompensated systolic heart failure New onset heart failure with reduced EF NICM Hypertensive urgency Hypertensive heart disease Smoker Morbidly obese Type 2 diabetes Type 2 [place] demand ischemia Possible sleep apnea Maintain SpO2 above 90% Telemetry IV Lasix, target -1-2 L c/w Jardiance, metop succinate c/w entresto aldactone Nicotine replacement therapy Insulin sliding scale, fingerstick x4 Strict I&O Daily weights Cardiac consult appreciated BiPAP at night LHC nonobs Replete electrolytes Diet healthy, diabetic DVT prophylaxis Lovenox Plan discussed with: Patient My Orders Orders - TASHIA BOWER MD Procedure Category Date Status Time Chest Portable XY 01/19/24 Resulted 08:42 Abg W/ Co-Ox RT 01/19/24 Logged 08:50 Date of Service: Jan 19, 2024 Billing Provider: TASHIA BOWER MD Common Visit Codes: [id number] INP/OBS CARE(HIGH) TASHIA BOWER MD Jan 19, 2024 13:34
--- NOTE | 2024-01-19 13:46 | DVHPN2 ---
Consult Progress Note Subjective Patient reports: No new complaints Review of Systems: CVS:Abnormal (edema), RESPIRATORY:Abnormal (SOB) Objective vital signs Vital Sign Date Time Temp Pulse Resp B/P (MAP) Pulse Ox O2 Delivery O2 Flow Rate FiO2 01/19/24 13:00 98.1 92 16 145/97 (113) 98 98.1 01/19/24 01:08 2.0 01/19/24 01:05 Nasal Cannula* 28 Total Intake and Output 01/18/24 01/18/24 01/19/24 15:00 23:00 07:00 Intake Total 840 ml 2770 ml Output Total 1325 ml 1650 ml Balance -485 ml 1120 ml medications Current Medications Medications Dose Ordered Sig/Von Route Start Time Stop Time Status Last Admin Dose Admin Aspirin 81 mg DAILY PO 01/16/24 10:00 01/19/24 10:11 81 MG Atorvastatin Calcium 40 mg HS PO 01/15/24 22:00 01/18/24 21:57 40 MG Acetaminophen 650 mg Q6HP PRN PO 01/15/24 18:15 Al Hydrox/Mg Hydrox/Simethicone 30 ml Q6HR PRN PO 01/15/24 18:15 Empaglifozin 10 mg DAILY PO 01/17/24 10:00 01/19/24 10:11 10 MG Sennosides 8.6 mg HS PO 01/16/24 22:00 01/18/24 21:57 8.6 MG Polyethylene Glycol 17 gm DAILY PO 01/17/24 10:00 01/17/24 10:09 17 GM Metoprolol Succinate 25 mg DAILY PO 01/17/24 10:00 01/19/24 10:12 25 MG Sacubitril/ Valsartan 1 tab BID PO 01/17/24 10:00 01/19/24 10:11 1 TAB Spironolactone 25 mg DAILY PO 01/17/24 10:00 01/19/24 10:11 25 MG Albuterol 2.5 mg Q4HPRN PRN NEB 01/18/24 23:45 Furosemide 40 mg BIDD IV 01/19/24 18:00 UNV Examination: LUNGS:Abnormal (rales), CVS:Abnormal (+2-3 edema) laboratory and microbiology Laboratory Tests 01/19/24 05:19 01/18/24 06:01 Test 01/19/24 05:19 Range/Units Serum Glucose 121 H 74-106 mg/dL Problem List/Assessment/Plan Problem List/Assessment/Plan NSTEMI, rule out coronary artery disease Acute on chronic decompensated HFrEF, NYHA class III, newly diagnosed Hypertensive urgency Aortic valve regurgitation, moderately severe degree Type II diabetes mellitus, newly diagnosed (Hgb A1c 6.6%) Tobacco use Morbid obesity Plan/Recommendation (Dr. Herron): * Echocardiogram reveals EF 15%, RVSP 45mmHg * Initiate GDMT for CHF as tolerated * Aggressive BP control * Aggressive diuresis as tolerated * Strict intake and output, daily weights, maintain fluid restriction * Cardiac surveillance Case discussed with . G s/p coronary angiogram negative for obstructive CAD. Nonischemic cardiomyopathy. Continue with GDMT. Continues to diurese well overnight still significantly overloaded. Dose of metolazone 5 mg p.o. x1 given. Monitor strict I&Os. Fluid restriction a 50 oz. This medical document was created using an electronic medical record system with voice recognition software and computerized dictation system. Although this document has been carefully reviewed, there might still be some phonetic and typographical errors. Occasional wrong-word or ``sound-alike substitutions may have occurred due to the inherent limitations of voice recognition software. These areas are purely typographical due to imperfections of the software programs and do not reflect any compromise in the patient's medical care. Please read the chart carefully and recognize, using context, where these substitutions have occurred. Plan discussed with: Patient Date of Service: Jan 19, 2024 Billing Provider: GERONIMO HERRON MD Common Visit Codes: [id number] INP/OBS CARE(HIGH), [id number] CARE 30-74 MIN TENISHA WHITING [facility] Jan 19, 2024 13:46
[2024-01-19] MEDS: metOLazone 5 MG TAB PO ONE (15:40)
[2024-01-19] MEDS: FUROSEMIDE 40 MG/4 ML VIAL IV SCH (17:23)
[2024-01-19] MEDS: ALBUTEROL SULF 2.5 MG/0.5ML(0.5%) NEB SOLN NEB PRN (22:44)
[2024-01-20] VITALS (12 sets, daily range): BP systolic 105–141; BP diastolic 60–99; PULSE 82–97; RESP 17–20; TEMP 98–98.5; O2SAT 92–100
[2024-01-20 06:29] LABS: Anion Gap 7 (5-15)
[2024-01-20 06:53] LABS: Alanine Aminotransferase 33 U/L (7-40); Albumin 3.5 g/dL (3.2-4.8); Alkaline Phosphatase 127 U/L (46-116); Aspartate Aminotransferase 25 U/L (13-40); Bilirubin, Total 0.8 mg/dL (0.2-1.0); Calcium 9.9 mg/dL (8.7-10.4); Carbon Dioxide 35 mmol/L (20-31); Chloride 100 mmol/L (98-107); Glucose 117 mg/dL (74-106); Phosphorus 4.4 mg/dL (2.4-5.1); Potassium 4.6 mmol/L (3.5-5.1); Sodium 142 mmol/L (136-145); Total Protein 5.8 g/dL (5.7-8.2)
[2024-01-20 07:19] LABS: BUN/Creatinine Ratio 19.4 (10.0-20.0)
[2024-01-20 07:21] LABS: Blood Urea Nitrogen 19 mg/dL (9-23)
[2024-01-20] MEDS: MORPHINE SULFATE INJ 2 MG/ml SYRG IV PRN (12:15)
[2024-01-20] MEDS: METOPROLOL SUCCINATE XL 50 MG TAB PO SCH (12:15)
--- NOTE | 2024-01-20 13:29 | DVHPN2 ---
Consult Progress Note Subjective Patient reports: Feels better Review of Systems: CVS:Normal (Denies chest pain, palpitations), CVS:Abnormal (Bilateral lower extremity edema improving), RESPIRATORY:Normal (Breathing feels better per patient) Objective vital signs Vital Sign Date Time Temp Pulse Resp B/P (MAP) Pulse Ox O2 Delivery O2 Flow Rate FiO2 01/20/24 12:15 96 123/96 01/20/24 12:15 18 01/20/24 08:40 93 Nasal Cannula* 3 32 01/20/24 05:00 98.0 98.0 Total Intake and Output 01/19/24 01/19/24 01/20/24 15:00 23:00 07:00 Intake Total 1080 ml 1200 ml Output Total 1850 ml 4250 ml Balance -770 ml -3050 ml medications Current Medications Medications Dose Ordered Sig/Von Route Start Time Stop Time Status Last Admin Dose Admin Aspirin 81 mg DAILY PO 01/16/24 10:00 01/20/24 10:29 81 MG Atorvastatin Calcium 40 mg HS PO 01/15/24 22:00 01/19/24 22:01 40 MG Acetaminophen 650 mg Q6HP PRN PO 01/15/24 18:15 Al Hydrox/Mg Hydrox/Simethicone 30 ml Q6HR PRN PO 01/15/24 18:15 Empaglifozin 10 mg DAILY PO 01/17/24 10:00 01/20/24 10:29 10 MG Sennosides 8.6 mg HS PO 01/16/24 22:00 01/19/24 22:01 8.6 MG Polyethylene Glycol 17 gm DAILY PO 01/17/24 10:00 01/17/24 10:09 17 GM Sacubitril/ Valsartan 1 tab BID PO 01/17/24 10:00 01/20/24 10:29 1 TAB Spironolactone 25 mg DAILY PO 01/17/24 10:00 01/20/24 10:29 25 MG Albuterol 2.5 mg Q4HPRN PRN NEB 01/18/24 23:45 01/19/24 22:44 2.5 MG Furosemide 40 mg BIDD IV 01/19/24 18:00 01/20/24 05:59 40 MG Morphine Sulfate 2 mg Q4HPRN PRN IV 01/19/24 21:00 01/20/24 12:15 2 MG Metoprolol Succinate 50 mg DAILY PO 01/20/24 10:00 01/20/24 12:15 50 MG Examination: LUNGS:Abnormal (Bibasilar crackles/diminished), CVS:Abnormal (+to BLE) laboratory and microbiology Laboratory Tests 01/20/24 04:50 01/18/24 06:01 Test 01/20/24 04:50 Range/Units Serum Glucose 117 H 74-106 mg/dL Problem List/Assessment/Plan Problem List/Assessment/Plan NSTEMI, rule out coronary artery disease Acute on chronic decompensated HFrEF, NYHA class III, newly diagnosed Hypertensive urgency Aortic valve regurgitation, moderately severe degree Type II diabetes mellitus, newly diagnosed (Hgb A1c 6.6%) Tobacco use Morbid obesity Plan/Recommendation (Dr. Herron): * Echocardiogram reveals EF 15%, RVSP 45mmHg * Initiate GDMT for CHF as tolerated * Aggressive BP control * Aggressive diuresis as tolerated * Strict intake and output, daily weights, maintain fluid restriction * Cardiac surveillance Patient is seen and assessed at bedside. S/p coronary angiogram negative for obstructive CAD 01/18/2024. Nonischemic cardiomyopathy. Continue with GDMT. Continues to diurese well overnight bilateral lower extremity improving. Breathing stable on room air. Continue with diuresis and monitor strict I&Os. Fluid restriction at 50 oz.. Awaiting [employer] assessment and approval. This medical document was created using an electronic medical record system with voice recognition software and computerized dictation system. Although this document has been carefully reviewed, there might still be some phonetic and typographical errors. Occasional wrong-word or ``sound-alike substitutions may have occurred due to the inherent limitations of voice recognition software. These areas are purely typographical due to imperfections of the software programs and do not reflect any compromise in the patient's medical care. Please read the chart carefully and recognize, using context, where these substitutions have occurred. Plan discussed with: Patient Date of Service: Jan 20, 2024 Billing Provider: GERONIMO HERRON MD Common Visit Codes: [id number] INP/OBS CARE(HIGH), [id number] CARE 30-74 MIN TENISHA WHITING [facility] Jan 20, 2024 13:29
--- NOTE | 2024-01-20 15:08 | DVHPN2 ---
Assessment/Plan Assessment/Plan Progress note Subjective 58-year-old male smoker admitted for new onset heart failure. Patient is seen by me today during rounds. pending lifevest. titrate down o2 Objective Physical exam Alert, oriented x3 PERRLA Morbidly obese Distant lung sounds Distant heart sounds Abdomen soft nontender, no organomegaly Moving all four extremities Bilateral lower extremity edema to thigh with blisters Lab Troponin 302 BNP 3500 LDL 73 A1c 6.6 EKG NSR with nonspecific STT wave abnormalities Imaging Chest x-ray clear Echo HFrEF 15% DCM Assessment and plan Acute hypoxic respiratory failure Acute decompensated systolic heart failure New onset heart failure with reduced EF NICM Hypertensive urgency Hypertensive heart disease Smoker Morbidly obese Type 2 diabetes Type 2 [place] demand ischemia Possible sleep apnea Maintain SpO2 above 90% Telemetry IV Lasix, target -1-2 L c/w Jardiance, metop succinate c/w entresto aldactone Nicotine replacement therapy Insulin sliding scale, fingerstick x4 Strict I&O Daily weights Cardiac consult appreciated BiPAP at night LHC nonobs pending lifevest Replete electrolytes Diet healthy, diabetic DVT prophylaxis Lovenox Plan discussed with: Patient My Orders Orders - TASHIA BOWER MD Procedure Category Date Status Time Notify Provider NOTICE 01/20/24 Transmitted Malnutrition 14:04 Cardiac DIET 01/20/24 Transmitted Diet-2gna,Lofat,Lochol Dinner Date of Service: Jan 20, 2024 Billing Provider: TASHIA BOWER MD Common Visit Codes: [id number] INP/OBS CARE(HIGH) TASHIA BOWER MD Jan 20, 2024 15:08
[2024-01-21] VITALS (10 sets, daily range): BP systolic 106–135; BP diastolic 66–87; PULSE 63–90; RESP 17–20; TEMP 98–98.8; O2SAT 91–97
[2024-01-21 05:59] LABS: Basophils # (auto) 0.1 10 ^3/uL (0-0.2); Eosinophils # (auto) 0.4 10 ^3/uL (0-0.8); Hemoglobin 15.1 g/dL (13.5-17.5); Monocytes # (auto) 0.8 10 ^3/uL (0-1.3); Neutrophils # (auto) 5.3 10 ^3/uL (1.6-8.6); Red Cell Distribution Width 15.6 % (11.8-14.3)
[2024-01-21 06:01] LABS: Eosinophils % (auto) 4.2 % (0.0-7.0); Hematocrit 46.7 % (41.0-53.0); Lymphocytes # (auto) 2.1 10 ^3/uL (0.4-5.4); Lymphocytes % (auto) 24.5 % (10.0-50.0); Mean Corpuscular Hemoglobin 25.9 pg (28.0-32.0); Mean Corpuscular Hgb Conc. 32.4 g/dL (32.0-36.0); Mean Corpuscular Volume 79.9 fL (80.0-100.0); Monocytes % (auto) 8.9 % (0.0-12.0); Neutrophils % (auto) 61.4 % (37.0-80.0); Platelet Count (auto) 401 10^3/uL (140-450); Red Blood Cells 5.85 10^6/uL (4.5-5.90); White Blood Cell 8.6 10^3/uL (4.4-10.8)
[2024-01-21 06:12] LABS: Anion Gap 6 (5-15); Potassium 3.9 mmol/L (3.5-5.1); Sodium 140 mmol/L (136-145)
[2024-01-21 06:13] LABS: Calcium 9.9 mg/dL (8.7-10.4)
[2024-01-21 06:18] LABS: BUN/Creatinine Ratio 19.4 (10.0-20.0); Blood Urea Nitrogen 19 mg/dL (9-23)
[2024-01-21 06:21] LABS: Carbon Dioxide 36 mmol/L (20-31); Chloride 98 mmol/L (98-107); Glucose 123 mg/dL (74-106)
--- NOTE | 2024-01-21 09:28 | DVHPN2 ---
Consult Progress Note Date Seen: Jan 21, 2024 Subjective Review of Systems: CVS:Normal, RESPIRATORY:Normal, NEURO:Normal Other Systems: Denies any cardiac symptoms Objective vital signs Vital Sign Date Time Temp Pulse Resp B/P (MAP) Pulse Ox O2 Delivery O2 Flow Rate FiO2 01/21/24 09:00 98.3 86 18 129/83 (98) 97 98.3 01/21/24 08:35 Nasal Cannula* 2 28 Total Intake and Output 01/20/24 01/20/24 01/21/24 15:00 23:00 07:00 Intake Total 916 ml Output Total 5225 ml 0 ml Balance -4309 ml 0 ml medications Current Medications Medications Dose Ordered Sig/Von Route Start Time Stop Time Status Last Admin Dose Admin Aspirin 81 mg DAILY PO 01/16/24 10:00 01/20/24 10:29 81 MG Atorvastatin Calcium 40 mg HS PO 01/15/24 22:00 01/20/24 22:03 40 MG Acetaminophen 650 mg Q6HP PRN PO 01/15/24 18:15 Al Hydrox/Mg Hydrox/Simethicone 30 ml Q6HR PRN PO 01/15/24 18:15 Empaglifozin 10 mg DAILY PO 01/17/24 10:00 01/20/24 10:29 10 MG Sennosides 8.6 mg HS PO 01/16/24 22:00 01/20/24 22:03 8.6 MG Polyethylene Glycol 17 gm DAILY PO 01/17/24 10:00 01/17/24 10:09 17 GM Sacubitril/ Valsartan 1 tab BID PO 01/17/24 10:00 01/20/24 22:03 1 TAB Spironolactone 25 mg DAILY PO 01/17/24 10:00 01/20/24 10:29 25 MG Albuterol 2.5 mg Q4HPRN PRN NEB 01/18/24 23:45 01/20/24 20:09 2.5 MG Furosemide 40 mg BIDD IV 01/19/24 18:00 01/21/24 06:18 40 MG Morphine Sulfate 2 mg Q4HPRN PRN IV 01/19/24 21:00 01/20/24 22:49 2 MG Metoprolol Succinate 50 mg DAILY PO 01/20/24 10:00 01/20/24 12:15 50 MG Examination: LUNGS:Normal, CVS:Normal (Pedal edema improved significantly), NEURO:Normal laboratory and microbiology Laboratory Tests 01/21/24 05:34 Test 01/21/24 05:34 Range/Units Serum Glucose 123 H 74-106 mg/dL Problem List/Assessment/Plan Problem List/Assessment/Plan Non-ST elevation myocardial infarction Acute on chronic decompensated HFrEF, NYHA class III, newly diagnosed Non-ischemic cardiomyopathy s/p [facility] on 01/18/24 Aortic valve regurgitation, moderately severe degree Type II diabetes mellitus, newly diagnosed (Hgb A1c 6.6%) Hypertensive urgency Tobacco use Morbid obesity Plan/Recommendation (Dr. Herron) * Echocardiogram revealed EF 15%, RVSP 45mmHg * Continue GDMT for CHF and uptitrate as tolerated * Aggressive BP control and diuresis as tolerated * Strict intake and output, daily weights, maintain fluid restriction * Follow-up with Cardiology within 1-2 weeks post-discharge There is no further cardiac work-up indicated at this time. [facility] to follow-up as outpatient. Kindly call if further work-up needed. Thank you for allowing us to care for this patient. This medical document was created using an electronic medical record system with voice recognition software and computerized dictation system. Although this document has been carefully reviewed, there might still be some phonetic and typographical errors. Occasional wrong-word or ``sound-alike substitutions may have occurred due to the inherent limitations of voice recognition software. These areas are purely typographical due to imperfections of the software programs and do not reflect any compromise in the patient's medical care. Please read the chart carefully and recognize, using context, where these substitutions have occurred. Plan discussed with: Patient, Other Dietary Evaluation Review Recommendations by RD: Decrease Calorie Intake Comments: 1. Add CCHO 45g component to cardiac diet. 2. Refer to outpatient RD/CDCES for diabetes education 3. Continue current plan of care Expected Outcomes/Goals: 1. Patient's lab and appetite to improve. 2. F/U in 3-5 days Date of Service: Jan 21, 2024 Billing Provider: GERONIMO HERRON MD Cardiology Common Codes: [id number] [facility] DANIKA DRAPER [facility] Jan 21, 2024 09:28
[2024-01-21] MEDS ORDERED: ASPI-325 PO (16:00)
[2024-01-21] MEDS ORDERED: METO-6 PO (16:00)
[2024-01-21] MEDS ORDERED: ATOR20TA50 PO (16:00)
[2024-01-21] MEDS ORDERED: SPIR25TA PO (16:00)
[2024-01-21] MEDS ORDERED: FURO40TA4 PO (16:00)
[2024-01-21] MEDS ORDERED: SACU1TAB PO (16:00)
[2024-01-21] MEDS ORDERED: EMPA1TAB PO (16:00)
[2024-01-21] MEDS: FUROSEMIDE 40 MG TAB PO SCH (17:54)
--- NOTE | 2024-01-21 21:12 | DVHDS2 ---
Discharge Summary Date of Admission Jan 15, 2024 at 18:11 Date of Discharge: Jan 21, 2024 Labs/Diagnostic Data: Laboratory Results Test 01/21/24 05:34 01/20/24 04:50 01/19/24 09:19 01/18/24 06:01 White Blood Count 8.6 10^3/uL (4.4-10.8) Red Blood Count 5.85 10^6/uL (4.5-5.90) Hemoglobin 15.1 g/dL (13.5-17.5) Hematocrit 46.7 % (41.0-53.0) Mean Corpuscular Volume 79.9 fL (80.0-100.0) Mean Corpuscular Hemoglobin 25.9 pg (28.0-32.0) Mean Corpuscular Hemoglobin Concent 32.4 g/dL (32.0-36.0) Red Cell Distribution Width 15.6 % (11.8-14.3) Platelet Count 401 10^3/uL (140-450) Mean Platelet Volume 8.1 fL (6.9-10.8) Neutrophils (%) (Auto) 61.4 % (37.0-80.0) Lymphocytes (%) (Auto) 24.5 % (10.0-50.0) Monocytes (%) (Auto) 8.9 % (0.0-12.0) Eosinophils (%) (Auto) 4.2 % (0.0-7.0) Basophils (%) (Auto) 1.0 % (0.0-2.0) Neutrophils # (Auto) 5.3 10 ^3/uL (1.6-8.6) Lymphocytes # (Auto) 2.1 10 ^3/uL (0.4-5.4) Monocytes # (Auto) 0.8 10 ^3/uL (0-1.3) Eosinophils # (Auto) 0.4 10 ^3/uL (0-0.8) Basophils # (Auto) 0.1 10 ^3/uL (0-0.2) Nucleated Red Blood Cells 0.0 % Sodium Level 140 mmol/L (136-145) Potassium Level 3.9 mmol/L (3.5-5.1) Chloride Level 98 mmol/L (98-107) Carbon Dioxide Level 36 mmol/L (20-31) Anion Gap 6 (5-15) Blood Urea Nitrogen 19 mg/dL (9-23) Creatinine 0.98 mg/dL (0.700-1.30) Glomerular Filtration Rate Calc 89 mL/min (>90) BUN/Creatinine Ratio 19.4 (10.0-20.0) Serum Glucose 123 mg/dL (74-106) Calcium Level 9.9 mg/dL (8.7-10.4) Phosphorus Level 4.4 mg/dL (2.4-5.1) Magnesium Level 2.0 mg/dL (1.6-2.6) Total Bilirubin 0.8 mg/dL (0.2-1.0) Aspartate Amino Transferase (AST) 25 U/L (13-40) Alanine Aminotransferase (ALT) 33 U/L (7-40) Alkaline Phosphatase 127 U/L (46-116) Total Protein 5.8 g/dL (5.7-8.2) Albumin 3.5 g/dL (3.2-4.8) Blood Gas Specimen Type Arterial Blood Gas Sample Site Right radial Blood Gas Patient Temperature 37.0 Arterial Blood Date Drawn [id number] Arterial Blood pH 7.418 (7.350-7.450) Arterial Blood Partial Pressure CO2 45.0 mmHg (35.0-48.0) Arterial Blood Partial Pressure O2 55.6 mmHg (83.0-108.0) Arterial Blood HCO3 28.4 mmol/L (21.0-28.0) Arterial Blood Oxygen Saturation 87.2 % (94.0-98.0) Arterial Blood Base Excess 3.3 mmol/L (-2.0-3.0) Arterial Blood Oxyhemoglobin 86.0 % (94.0-98.0) Arterial Blood Carboxyhemoglobin 1.0 % (0.5-1.5) Arterial Blood Methemoglobin 0.4 % (0.0-1.5) Tony Test Modified Blood Gas Total Hemoglobin 14.60 g/dL (13.5-17.5) Blood Gas Modality Room air FiO2 % 21.0 Prothrombin Time 11.9 sec (9.3-11.8) Prothrombin Time INR 1.13 (0.9-1.15) Activated Partial Thromboplast Time 24.5 SEC (24.5-34.5) Test 01/17/24 15:35 01/16/24 08:38 01/15/24 20:48 01/15/24 14:19 Urine Opiates Screen Neg (NEGATIVE) Urine Fentanyl Screen Neg (NEGATIVE) Urine Barbiturates Screen Neg (NEGATIVE) Urine Phencyclidine Screen Neg (NEGATIVE) Urine Amphetamines Screen Neg (NEGATIVE) Urine Benzodiazepines Screen Neg (NEGATIVE) Urine Cocaine Screen Neg (NEGATIVE) Urine Cannabinoids Screen Neg (NEGATIVE) Hemoglobin A1c 6.6 % A1C (<5.7) Triglycerides Level 68 mg/dL (< 150) Cholesterol Level 114 mg/dL (< 200) LDL Cholesterol 73 mg/dL (< 100) HDL Cholesterol 30 mg/dL (40-59) Thyroid Stimulating Hormone (TSH) 0.94 uIU/mL (0.55-4.78) Troponin I High Sensitivity 269 ng/L (</=54) B-Type Natriuretic Peptide 3523.52 pg/mL (0-100) Other Laboratory Tests 01/21/24 05:34 Brief Hx & Hospital Course: 58 yo M admitted for acute hypoxic RF, found to have new HFrEF, started on diuresis. echo with severely decreased EF, LHC non obstructivbe, UDS negative, started and titrated up on GDMT< O2 recs improving, stable to DC home with cardio follow up. patient unable to get lifevest due to insurance issue. Condition at Discharge: Good Final Diagnosis/Problems List # Coronary angiography revealed no obstructive coronary artery disease but sluggish flow # Acute systolic heart failure Discharge Disposition: Home Discharge Instruct/Medications Diet: Cardiac 2g Na,low cholest Activity: No Restrictions, As Tolerated Follow Up/Referral: cardiology PCP Medications: jardiance metoprolol aldactone aspirin lipitor entresto 35 Discharge Statement: "Patient was advised to return to the ER or call 911 if any headaches, dizziness, shortness of breath, chest pain, abdominal pain, bleeding, fevers, or worsening of medical condition. Patient was counseled about treatment plan, medications, possible side effects, patientverbalized understanding. All questions were answered to the best of my ability. This discharge took greater then 30 minutes in planning, reviewing documentation, counseling the patient, and discussing with other team members." ASSESSMENT ASSESSMENT Assessment Acute hypoxic respiratory failure Acute decompensated systolic heart failure New onset heart failure with reduced EF NICM Hypertensive urgency Hypertensive heart disease Smoker Morbidly obese Type 2 diabetes Type 2 [place] demand ischemia Possible sleep apnea Date of Service: Jan 21, 2024 Billing Provider: TASHIA BOWER MD Common Visit Codes: 31026-PCW/OBS DISCH DAY >30min TASHIA BOWER MD Jan 21, 2024 21:12
== END 2024-01-21 18:18 | disposition home or self-care (01) | DRG 280 ==
LOC: EDBD 13:48 → ER 13:48 → TELE 18:11 → TELE-WESTW 01-16 02:12
PROVIDERS: ADMIT Hospitalist; ATTEND Student in an Organized Health Care Education/Training Program
PROC: B211YZZ Fluoroscopy of Multiple Coronary Arteries using Other Contrast (ICD-10-PCS; principal; 2024-01-18)
PROC: 4A023N7 Measurement of Cardiac Sampling and Pressure, Left Heart, Percutaneous Approach (ICD-10-PCS; 2024-01-18)
DX: I11.0 Hypertensive heart disease with heart failure (principal); I50.23 Acute on chronic systolic (congestive) heart failure; I21.A1 Myocardial infarction type 2; J96.01 Acute respiratory failure with hypoxia; E66.01 Morbid (severe) obesity due to excess calories; I16.0 Hypertensive urgency; E11.9 Type 2 diabetes mellitus without complications; I42.8 Other cardiomyopathies; F17.200 Nicotine dependence, unspecified, uncomplicated; I35.1 Nonrheumatic aortic (valve) insufficiency; E78.5 Hyperlipidemia, unspecified; J45.909 Unspecified asthma, uncomplicated; Z68.22 Body mass index [BMI] 22.0-22.9, adult
CPT/HCPCS: 36415; 36600; 71045; 80048; 80053; 80061; 80307; 82805; 83036; 83735; 83880; 84100; 84443; 84484; 85025; 85610; 85730; 93005; 93306; 93458; 94640; 99152; 99291; G0378; J2250; Q9967

== ENCOUNTER 2024-03-19 16:31 | Inpatient (IN) | payer OTHER ==
[~2024-03-19] VITALS: Ht 182.9 cm; Wt 127.5 kg
[~2024-03-19 16:31] MED LIST: ASPI-325 PO; ATOR20TA50 PO; EMPA1TAB PO; FURO40TA4 PO; METO-6 PO; SACU1TAB PO; SPIR25TA PO
--- NOTE | 2024-03-19 16:56 | DVH ---
CHEST RADIOGRAPH Indication: sob Technique: Single frontal view of the chest was obtained COMPARISON: XY CHEST PORTABLE on DOS: 01/19/24, XY CHEST PORTABLE on DOS: 01/15/24 FINDINGS: Lines and Tubes: None Lungs: Clear Pleura: No effusion. No pneumothorax. Cardiomediastinal contours: Cardiomegaly Bones: Unremarkable IMPRESSION: Cardiomegaly
[2024-03-19 17:03] VITALS: PULSE 96; RESP 18; O2SAT 98
--- NOTE | 2024-03-19 17:20 | ED.PDOC ---
SOB-HPI HPI Comments 58Y M with PMHx DM, HTN, and CHF presents to ED for chief complaint SOB. Pt states all his medications were thrown away 2 weeks ago and has not taken anything since then. No other symptoms reported. Chief Complaint: Shortness of Breath Time Seen by MD: 16:40 Reviewed notes: Nurses Notes, Medications, Allergies Information Source: Patient Mode of Arrival: Wheelchair Severity: Mild Timing: Weeks Duration: Since onset Context: At Rest PE Risk Factors: None History of: CHF Modifying Factors: Nothing Associated Signs and Symptoms: None Past Medical History PAST MEDICAL HISTORY: CHF, DM, HTN Surgical History: Denies all surgeries Family History Family History: Unknown Social History Smoker: Non-Smoker Alcohol: Denies ETOH Use Drugs: Denies Drug Use Lives In: Home Constitutional: denies: chills, diaphoresis, fatigue, fever, malaise, sweats, weakness, others EENTM: denies: blurred vision, double vision, ear bleeding, ear discharge, ear drainage, ear pain, ear ringing, eye pain, eye redness, hearing loss, mouth pain, mouth swelling, nasal discharge, nose bleeding, nose congestion, nose pain, photophobia, tearing, throat pain, throat swelling, voice changes, others Respiratory: reports: shortness of breath, SOB with excertion; denies: cough, hemoptysis, orthopnea, SOB at rest, stridor, wheezing, others Cardiovascular: reports: Dyspnea on exertion; denies: chest pain, dizzy spells, diaphoresis, edema, irregular heart beat, left arm pain, lightheadedness, palpitations, PND, syncope, others Gastrointestinal: denies: abdomen distended, abdominal pain, blood streaked bowels, constipated, diarrhea, dysphagia, difficulty swallowing, hematemesis, melena, nausea, poor appetite, poor fluid intake, rectal bleeding, rectal pain, vomiting, others Genitourinary: denies: burning, dysuria, flank pain, frequency, hematuria, incontinence, penile discharge, penile sore, pain, testicle pain, testicle swelling, urgency, others Neurological: denies: dizziness, fainting, headache, left sided numbness, left sided weakness, numbness, paresthesia, pre-existing deficit, right sided numbn ess, right sided weakness, seizure, speech problems, tingling, tremors, weakness, others Musculoskeletal: denies: back pain, gout, joint pain, joint swelling, muscle pain, muscle stiffness, neck pain, others Integumetry: denies: bruises, change in color, change in hair/nails, dryness, laceration, lesions, lumps, rash, wounds, others Allergic/Immunocompromised: denies: Difficulty Healing, Frequent Infections, Hives, Itching, others Hematologic/Lymphatic: denies: anemia, blood clots, easy bleeding, easy bruising, swollen glands, others Endocrine: denies: excessive hunger, excessive sweating, excessive thirst, excessive urination, flushing, intolerance to cold, intolerance to heat, unexplained weight gain, unexplained weight loss, others Psychiatric: denies: anxiety, bipolar disorder, depression, hopeless, panic disorder, schizophrenia, sleepless, suicidal, others All Other Systems: Reviewed and Negative Physical Exam General Appearance: No Apparent Distress, Normal HEENT: Normal ENT Inspection, Pharynx Normal, TMs Normal Neck: Full Range of Motion, Non-Tender, Normal, Normal Inspection Respiratory: Chest Non-Tender, Lungs Clear, No Accessory Muscle Use, No Respiratory Distress, Normal Breath Sounds Cardiovascular: No Edema, No JVD, No Murmur, No Gallop, Normal Peripheral Pulses, Regular Rate/Rhythm Breast Exam: Deferred Gastrointestinal: No Organomegaly, Non Tender, No Pulsatile Mass, Normal Bowel Sounds, Soft Genitalia: Deferred Pelvic: Deferred Rectal: Deferred Extremities: No calf tenderness, Normal capillary refill, Normal inspection, Normal range of motion, Non-tender, No pedal edema Musculoskeletal : Apperance: Normal Neurologic: Alert, musical therapist II-XII nml as Tested, No Motor Deficits, Normal Affect, Normal Mood, No Sensory Deficits Cerebellar Function: Normal Reflexes: Normal Skin: Dry, Normal Color, Warm Lymphatic: No Adenopathy Was a procedure done? Was a procedure done?: No Differential Dx Differential Diagnosis: CHF X-Ray, Labs, Meds, VS Vital Signs Date Time Temp Pulse Resp B/P (MAP) Pulse Ox O2 Delivery O2 Flow Rate FiO2 03/19/24 17:03 96 18 98 Room Air* 0 21 03/19/24 17:03 98.2 96 18 141/73 (95) 98 98.2 03/19/24 17:01 98.2 96 18 141/73 (95) 96 03/19/24 16:41 18 98 Room Air* 0 21 03/19/24 16:40 93 Lab Test 03/19/24 18:08 03/19/24 17:22 Range/Units Troponin I High Sensitivity 321 *H 325 *H </=54 ng/L White Blood Count 8.5 4.4-10.8 10^3/uL Red Blood Count 5.88 4.5-5.90 10^6/uL Hemoglobin 14.5 13.5-17.5 g/dL Hematocrit 45.8 41.0-53.0 % Mean Corpuscular Volume 77.9 L 80.0-100.0 fL Mean Corpuscular Hemoglobin 24.7 L 28.0-32.0 pg Mean Corpuscular Hemoglobin Concent 31.7 L 32.0-36.0 g/dL Red Cell Distribution Width 17.2 H 11.8-14.3 % Platelet Count 338 140-450 10^3/uL Mean Platelet Volume 8.3 6.9-10.8 fL Neutrophils (%) (Auto) 65.6 37.0-80.0 % Lymphocytes (%) (Auto) 24.6 10.0-50.0 % Monocytes (%) (Auto) 7.7 0.0-12.0 % Eosinophils (%) (Auto) 0.8 0.0-7.0 % Basophils (%) (Auto) 1.3 0.0-2.0 % Neutrophils # (Auto) 5.6 1.6-8.6 10 ^3/uL Lymphocytes # (Auto) 2.1 0.4-5.4 10 ^3/uL Monocytes # (Auto) 0.7 0-1.3 10 ^3/uL Eosinophils # (Auto) 0.1 0-0.8 10 ^3/uL Basophils # (Auto) 0.1 0-0.2 10 ^3/uL Nucleated Red Blood Cells 0.9 % Sodium Level 140 136-145 mmol/L Potassium Level 4.5 3.5-5.1 mmol/L Chloride Level 107 98-107 mmol/L Carbon Dioxide Level 20 20-31 mmol/L Anion Gap 13 5-15 Blood Urea Nitrogen 18 9-23 mg/dL Creatinine 1.12 0.700-1.30 mg/dL Glomerular Filtration Rate Calc 76 >90 mL/min BUN/Creatinine Ratio 16.1 10.0-20.0 Serum Glucose 100 74-106 mg/dL Calcium Level 9.8 8.7-10.4 mg/dL Total Bilirubin 2.2 H 0.2-1.0 mg/dL Aspartate Amino Transferase (AST) 38 13-40 U/L Alanine Aminotransferase (ALT) 48 H 7-40 U/L Alkaline Phosphatase 143 H 46-116 U/L B-Type Natriuretic Peptide 2996.41 0-100 pg/mL Total Protein 6.9 5.7-8.2 g/dL Albumin 4.2 3.2-4.8 g/dL [facility] [id number] [place] [address] Ph: [phone] DIAGNOSTIC IMAGING Diagnostic Imaging Report : [id number] Signed PATIENT: ALMA TERRY ACCT: [id number] UNIT: [id number] : 1965 LOC: ER ROOM / BED: / AGE / SEX: 58 / M ADM STATUS: REG ER SERVICE 38 ORDERING PHYSICIAN: MARIO SAN PROCEDURE(s): CXR1 - CHEST XRAY 1 VIEW REASON: sob ORDER NUMBER(s): [id number], ACCESSION NUMBER(s): [id number] CHEST RADIOGRAPH Indication: sob Technique: Single frontal view of the chest was obtained COMPARISON: XY CHEST PORTABLE on DOS: 01/19/24, XY CHEST PORTABLE on DOS: 01/15/24 FINDINGS: Lines and Tubes: None Lungs: Clear Pleura: No effusion. No pneumothorax. Cardiomediastinal contours: Cardiomegaly Bones: Unremarkable IMPRESSION: Cardiomegaly ATED BY: MELVIN SHERMAN MD DICTATED DATE/TIME: 03/19/241653 SIGNED BY: MELVIN SHERMAN MD SIGNED DATE/TIME: 03/19/241653 CC: X-Ray, Labs, Meds, VS Comment Patient will be admitted for CHF exacerbation and elevated troponins Patient will be given Lasix IV Recommend cardiology consult in the morning Time of 1ST Reevaluation: 17:10 Reevaluation 1ST: Unchanged Patient Education/Counseling: Diagnosis, Treatment Family Education/Counseling: No Family Present Departure 1 Departure Time of Disposition: 19:23 Impression: Primary Impression: CHF (congestive heart failure) Qualified Codes: I50.22 - Chronic systolic (congestive) heart failure Additional Impression: NSTEMI (non-ST elevated myocardial infarction) Disposition: 09 ADMITTED INPATIENT Condition: Fair Discharged With: Self Critical Care Note Critical Care Time?: No Stability Stability form required: No Heart Score Heart Score: Heart Score Response (Comments) Value History N/A 0 EKG N/A 0 Age N/A 0 Risk Factors N/A 0 Troponin N/A 0 Total 0 I personally scribed for MARIO SAN ([email or web address]) on 03/19/24 at 17:20. Electronically submitted by Xuan Gallegos ([facility] MARIO SAN Mar 19, 2024 17:20
[2024-03-19 17:43] LABS: Basophils # (auto) 0.1 10 ^3/uL (0-0.2); Basophils % (auto) 1.3 % (0.0-2.0); Eosinophils # (auto) 0.1 10 ^3/uL (0-0.8); Eosinophils % (auto) 0.8 % (0.0-7.0); Hematocrit 45.8 % (41.0-53.0); Hemoglobin 14.5 g/dL (13.5-17.5); Lymphocytes # (auto) 2.1 10 ^3/uL (0.4-5.4); Lymphocytes % (auto) 24.6 % (10.0-50.0); Mean Corpuscular Hemoglobin 24.7 pg (28.0-32.0); Mean Corpuscular Hgb Conc. 31.7 g/dL (32.0-36.0); Mean Corpuscular Volume 77.9 fL (80.0-100.0); Monocytes # (auto) 0.7 10 ^3/uL (0-1.3); Monocytes % (auto) 7.7 % (0.0-12.0); Neutrophils # (auto) 5.6 10 ^3/uL (1.6-8.6); Neutrophils % (auto) 65.6 % (37.0-80.0); Nucleated Red Blood Cells % 0.9 %; Platelet Count (auto) 338 10^3/uL (140-450); Red Blood Cells 5.88 10^6/uL (4.5-5.90); Red Cell Distribution Width 17.2 % (11.8-14.3); White Blood Cell 8.5 10^3/uL (4.4-10.8)
[2024-03-19 18:08] LABS: Albumin 4.2 g/dL (3.2-4.8); Anion Gap 13 (5-15); Aspartate Aminotransferase 38 U/L (13-40); BUN/Creatinine Ratio 16.1 (10.0-20.0); Blood Urea Nitrogen 18 mg/dL (9-23); Calcium 9.8 mg/dL (8.7-10.4); Carbon Dioxide 20 mmol/L (20-31); Chloride 107 mmol/L (98-107); Glucose 100 mg/dL (74-106); Potassium 4.5 mmol/L (3.5-5.1); Sodium 140 mmol/L (136-145); Total Protein 6.9 g/dL (5.7-8.2)
--- NOTE | 2024-03-19 18:10 | ECG ---
[facility] Test Date: 2024-03-19 Test Time: 16:40:07 Pat Name: ALMA TERRY Department: ER Room: 0246T Gender: M [employer]: SHIRA : 1965 Requested By: MARIO SAN Order Number: [id number] Reading MD: Adalid Unger Measurements Intervals [place] Rate: 93 P: 36 [place]: 169 QRS: -40 QRSD: 98 T: 104 QT: 409 QTc: 509 Interpretive Statements Sinus rhythm Probable left atrial enlargement Left anterior fascicular block Left ventricular hypertrophy Anterior Q waves, possibly due to LVH Nonspecific T abnormalities, lateral leads Prolonged QT interval Electronically Signed On 03-20-2024 12:00:52 PST by Adalid Unger Please click the below link to view image of tracing.
[2024-03-19 18:39] LABS: Alanine Aminotransferase 48 U/L (7-40); Alkaline Phosphatase 143 U/L (46-116); Bilirubin, Total 2.2 mg/dL (0.2-1.0)
[2024-03-19] MEDS ORDERED: ONDANSETRON HCL 4 MG/2 ML VIAL IV PRN (20:30)
[2024-03-19 23:37] LABS: Urine Bacteria None Seen /hpf (None Seen)
[2024-03-20] VITALS (16 sets, daily range): BP systolic 132–153; BP diastolic 92–107; PULSE 85–92; RESP 14–21; TEMP 97.4–98; O2SAT 93–100
[2024-03-20 00:16] LABS: Urine Blood 1+ /uL (Negative); Urine Clarity Clear (Clear); Urine Color Yellow (Yellow); Urine Hyaline Cast FEW /lpf (0 - 2); Urine Mucus FEW (None Seen); Urine Protein, UAD 2+ (Negative); Urine Specific Gravity 1.022 (1.001-1.035); Urine Squamous Epithelial Cell FEW /hpf (<5); Urine Urobilinogen 6 mg/dL (Negative); Urine WBC 1 /HPF (0-3); Urine pH 5.5 (5.0-9.0)
--- NOTE | 2024-03-20 00:37 | DVHHP2 ---
History of Present Illness Reason for Visit: Shortness for breath History of Present Illness 58-year-old male presents for evaluation of shortness for breath. Patient with a history of congestive heart failure reports a two week history of worsening shortness for breath. Patient reports being off his medications for the past three weeks. He accidentally threw away his medications. Patient reports chest tightness with associated lower extremity swelling and abdominal distention. Denies cough or fever. Past Medical History Hypertension, diabetes mellitus,, dyslipidemia and congestive heart failure Past Surgical History Denies Family History Noncontributory Smoke: No ALCOHOL: none Drugs: None Lives: with Family Review of Systems Review of Systems Review of systems are currently negative otherwise addressed in HPI. Allergies: Coded Allergies: NO KNOWN ALLERGIES (Unverified , 01/15/24) Medications Current Medications Medications Dose Ordered Sig/Von Route Start Time Stop Time Status Last Admin Dose Admin Nitroglycerin 0.4 mg Q5MINP PRN SL 03/19/24 20:00 Morphine Sulfate 2 mg Q30M PRN IV 03/19/24 20:00 Empaglifozin 10 mg DAILY PO 03/20/24 10:00 Valsartan 160 mg DAILY PO 03/20/24 10:00 Metoprolol Succinate 50 mg DAILY PO 03/20/24 10:00 Furosemide 20 mg BIDD IV 03/20/24 06:00 Atorvastatin Calcium 20 mg HS PO 03/19/24 22:00 Ondansetron HCl 4 mg Q4HP PRN IV 03/19/24 20:30 Enoxaparin Sodium 40 mg DAILY SC 03/20/24 10:00 Acetaminophen 650 mg Q6HP PRN PO 03/19/24 20:30 Exam Vital Signs Vital Signs Date Time Temp Pulse Resp B/P (MAP) Pulse Ox O2 Delivery O2 Flow Rate FiO2 03/19/24 21:04 98.0 96 14 157/103 (121) 99 98.0 03/19/24 17:03 Room Air* 0 21 Exam Gen: 58-year-old male in mild distress Skin: Warm, dry, normal color and texture, no rash. HEENT: Normocephalic atraumatic, mucous membranes moist and pink. Neck: Cervical and supraclavicular nodes normal without enlargement, trachea is midline, thyroid gland is normal without masses. Pulmonary: Clear to auscultation and percussion bilaterally. Cardiac: Regular rate and rhythm. No murmur Abdomen: Soft, nontender, nondistended, bowel sounds present all 4 quadrants, no guarding, no rigidity, no organomegaly. Extremities: No cyanosis, clubbing, no edema Neuro: Cranial nerves II through XII grossly intact, normal affect and speech, no focal motor deficits. Labs/Xrays ORDERING PHYSICIAN: BILL GARZA PROCEDURE(s): ECIDC - ECHO 2D MODE CARDIAC DOP REASON: evaluate cardiac function ORDER NUMBER(s): [id number], ACCESSION NUMBER(s): [id number] APPROVED REPORT EXAM: Two-dimensional and M-mode echocardiogram with Doppler and color Doppler. Blood Pressure: 149/100 mmHg INDICATION evaluate cardiac function RISK FACTORS Obesity: Height: 6'0, Weight: 328 DIMENSIONS LVDd 6.0 (3.8-5.7cm) LA (2D) 4.2 (1.9-4.0cm) Aortic Root 4.3 (2.0- 3.7cm) LVDs 5.6 (2.5-4.0cm) LA (MM) (1.9-4.0cm) Aortic Cusp Exc 1.8 (1.5- 2.0cm) EF (%) 15.0 (55-70%) Rt. Atrium 5.0 (1.9-4.0cm) Asc. Aorta 3.7 cm IVSd 1.0 (0.7-1.1cm) RV (D) (1.8-2.4cm) PWd 1.2 (0.7-1.1cm) Mitral Valve Mitral Mitral Stenosis E wave 0.92m/s MV Mean GR. mmHg A wave 0.82m/s MV Peak GR. 67mmHg E/A ratio 1.1 2D MVA cm2 DECEL Time 162ms PRESS 1/2 Time ms Aortic Valve Aortic Valve Aortic Stenosis V1 0.63m/s AO Mean GR. 3mmHg V2 1.17m/s AO Peak GR. 6mmHg LVOT Diameter 2.4 (1.8-2.4cm) Doppler LUIS 2.43cm2 AI P 1/2 Time 363.38ms Pulmonic Valve V2 0.73m/s Tricuspid Valve TR Velocity 2.65m/s RVSP 42mmHg Conclusion Severely dilated left ventricle. Severely reduced left ventricular systolic function with estimated ejection fraction of 15%. There is global wall akinesia. There is a grade 2diastolic dysfunction. Severely reduced right ventricular systolic function. Moderately elevated right ventricular systolic pressure is45 mm of mercury. Moderately dilated right and left atria. There is moderately severe aortic valve regurgitation. There is [id number] mitral valve regurgitation. There is [id number] tricuspid valve regurgitation. The pulmonary valve is grossly normal. No pericardial effusion. SIGNED BY: GERONIMO HERRON MD SIGNED DATE/TIME: 01/16/24 1708 ORDERING PHYSICIAN: MARIO SAN PROCEDURE(s): CXR1 - CHEST XRAY 1 VIEW REASON: sob ORDER NUMBER(s): [id number], ACCESSION NUMBER(s): [id number] CHEST RADIOGRAPH Indication: sob Technique: Single frontal view of the chest was obtained COMPARISON: XY CHEST PORTABLE on DOS: 01/19/24, XY CHEST PORTABLE on DOS: 01/15/24 FINDINGS: Lines and Tubes: None Lungs: Clear Pleura: No effusion. No pneumothorax. Cardiomediastinal contours: Cardiomegaly Bones: Unremarkable IMPRESSION: Cardiomegaly Labs Test 03/19/24 20:00 03/19/24 17:22 03/19/24 16:52 Range/Units Troponin I High Sensitivity 331 *H </=54 ng/L White Blood Count 8.5 4.4-10.8 10^3/uL Red Blood Count 5.88 4.5-5.90 10^6/uL Hemoglobin 14.5 13.5-17.5 g/dL Hematocrit 45.8 41.0-53.0 % Mean Corpuscular Volume 77.9 L 80.0-100.0 fL Mean Corpuscular Hemoglobin 24.7 L 28.0-32.0 pg Mean Corpuscular Hemoglobin Concent 31.7 L 32.0-36.0 g/dL Red Cell Distribution Width 17.2 H 11.8-14.3 % Platelet Count 338 140-450 10^3/uL Mean Platelet Volume 8.3 6.9-10.8 fL Neutrophils (%) (Auto) 65.6 37.0-80.0 % Lymphocytes (%) (Auto) 24.6 10.0-50.0 % Monocytes (%) (Auto) 7.7 0.0-12.0 % Eosinophils (%) (Auto) 0.8 0.0-7.0 % Basophils (%) (Auto) 1.3 0.0-2.0 % Neutrophils # (Auto) 5.6 1.6-8.6 10 ^3/uL Lymphocytes # (Auto) 2.1 0.4-5.4 10 ^3/uL Monocytes # (Auto) 0.7 0-1.3 10 ^3/uL Eosinophils # (Auto) 0.1 0-0.8 10 ^3/uL Basophils # (Auto) 0.1 0-0.2 10 ^3/uL Nucleated Red Blood Cells 0.9 % Sodium Level 140 136-145 mmol/L Potassium Level 4.5 3.5-5.1 mmol/L Chloride Level 107 98-107 mmol/L Carbon Dioxide Level 20 20-31 mmol/L Anion Gap 13 5-15 Blood Urea Nitrogen 18 9-23 mg/dL Creatinine 1.12 0.700-1.30 mg/dL Glomerular Filtration Rate Calc 76 >90 mL/min BUN/Creatinine Ratio 16.1 10.0-20.0 Serum Glucose 100 74-106 mg/dL Calcium Level 9.8 8.7-10.4 mg/dL Total Bilirubin 2.2 H 0.2-1.0 mg/dL Aspartate Amino Transferase (AST) 38 13-40 U/L Alanine Aminotransferase (ALT) 48 H 7-40 U/L Alkaline Phosphatase 143 H 46-116 U/L B-Type Natriuretic Peptide 2996.41 0-100 pg/mL Total Protein 6.9 5.7-8.2 g/dL Albumin 4.2 3.2-4.8 g/dL Urine Color Yellow Yellow Urine Clarity Clear Clear Urine pH 5.5 5.0-9.0 Urine Specific [place] 1.022 1.001-1.035 Urine Protein 2+ H Negative Urine Ketones Negative Negative Urine Blood 1+ H Negative /uL Urine Nitrite Negative Negative Urine Bilirubin 1+ Negative Urine Urobilinogen 6 Negative mg/dL Urine Leukocyte Esterase Negative Negative /uL Urine RBC 1 0 - 3 /hpf Urine Microscopic WBC 1 0-3 /HPF Urine Squamous Epithelial Cells Few <5 /hpf Urine Bacteria None seen None Seen /hpf Urine Hyaline Casts Few 0 - 2 /lpf Urine Mucus Few None Seen Urine Glucose Normal Normal mg/dL Assessment/Plan Assessment/Plan Assessment Acute on chronic congestive heart failure Hypertension Diabetes mellitus Elevated troponin possible demand ischemia Plan Admit the patient to telemetry to the hospitalist Cardiology consultation Resume home medications Continue treatment per orders. Plan discussed with: Patient My Orders Orders - ARGELIA SALDAÑA Procedure Category Date Status Time Admit ADMIT 03/19/24 Transmitted 19:56 Nitroglycerin PHA 03/19/24 In Process Sublingual (Ntrostat 20:00 Morphine Sulfate PHA 03/19/24 In Process Injection 20:00 Stat Ekg For Chest RED 03/19/24 In Process Pain 19:56 Notify Of Changes RED 03/19/24 In Process From Base 19:56 Credit Products Officer For [facility] 03/19/24 In Process 24 Hours 19:56 Emergency Dysrhythmia [facility] 03/19/24 In Process Protocol 19:56 Rhythm Strips Once [facility] 03/19/24 In Process Every Shift 19:56 Oxygen By Nasal RT 03/19/24 Transmitted Cannula 19:56 Empagliflozin PHA 03/20/24 In Process (Jardiance) 10:00 Metoprolol Xl PHA 03/20/24 In Process Succinate (Toprol Xl) 10:00 Furosemide Injection PHA 03/20/24 In Process (Lasix Injection) 06:00 Atorvastatin (Lipitor) PHA 03/19/24 In Process 22:00 Basic Metabolic Panel LAB 03/20/24 Logged 04:00 * Cardiology Consult CONS 03/19/24 Transmitted 20:22 Ondansetron Hcl PHA 03/19/24 In Process (Zofran) 20:30 Enoxaparin Sodium PHA 03/20/24 In Process (Lovenox) 10:00 Cardiac DIET 03/20/24 Transmitted Diet-2gna,Lofat,Lochol Breakfast Echo 2d Mode Cardiac US 03/19/24 Logged DOP 20:22 Condition: Fair RED 03/19/24 In Process 20:22 Acetaminophen Tablet PHA 03/19/24 In Process (Tylenol Tablet) 20:30 Bedrest With Bathroom RED 03/19/24 In Process Privileg 20:22 Valsartan (Diovan) PHA 03/20/24 In Process 10:00 Date of Service: Mar 19, 2024 Billing Provider: ARGELIA SALDAÑA Common Visit Codes: [id number] INP/OBS CARE (HIGH) ARGELIA SALDAÑA Mar 20, 2024 00:37
[2024-03-20] MEDS: ATORVASTATIN 20 MG TAB PO SCH (01:01)
[2024-03-20] MEDS: FUROSEMIDE 20 MG/2 ML VIAL IV ONE ×2 (01:36→21:38)
[2024-03-20] MEDS: FUROSEMIDE 20 MG/2 ML VIAL IV SCH (06:00)
[2024-03-20 07:59] LABS: Anion Gap 10 (5-15); Calcium 9.8 mg/dL (8.7-10.4); Carbon Dioxide 24 mmol/L (20-31); Potassium 3.9 mmol/L (3.5-5.1); Sodium 141 mmol/L (136-145)
[2024-03-20 08:00] LABS: Chloride 107 mmol/L (98-107)
[2024-03-20 08:05] LABS: BUN/Creatinine Ratio 17.9 (10.0-20.0); Blood Urea Nitrogen 21 mg/dL (9-23); Glucose 135 mg/dL (74-106)
[2024-03-20 08:46] LABS: Magnesium 1.7 mg/dL (1.6-2.6)
--- NOTE | 2024-03-20 09:58 | DVHINCON2 ---
[facility]EL[facility] 03/20/24 0958: Date Seen: Mar 20, 2024 Referring Physician KIMBERLEY Keyes Reason for Consultation CHF History of Present Illness This is a 58-year-old male patient who presents to emergency room with chief complaint of worsening shortness of breath and bilateral lower extremity edema for one week. The patient reports that he accidentally threw away all of his heart failure medications and has not taking any medications for approximately three weeks. He now comes to the emergency room for further evaluation. Initi al twelve lead electrocardiogram reveals normal sinus rhythm with nonspecific ST segment changes to lateral leads and slightly prolonged QTc interval. Initial BNP level of 2996.41pg/mL. Initial troponin level of 325ng/L with flat trend thereafter. Significant past medical history includes congestive heart failure, nonischemic cardiomyopathy, hypertension, type 2 diabetes mellitus, tobacco use, and morbid obesity. The patient underwent a coronary angiogram with left heart catheterization on 01/18/24 in which there was no catheter based intervention. Patient reports he has not followed up with a harness maker in the outpatient set ting. Past Medical History Past medical history reviewed. No other significant than mentioned above. Past Surgical History Denies all previous surgeries Family History: Hypertension G8 FATHER Sickle cell trait in mother G8 MOTHER Family History Family history reviewed. Social History Patient has a 45 pack-year history, smokes one pack per day Denies any illicit drug use Denies any alcohol use Allergies: Coded Allergies: NO KNOWN ALLERGIES (Unverified , 01/15/24) Home Meds Active Scripts Spironolactone (Aldactone) 25 Mg Tab, 25 MG PO DAILY for 90 Days, #90 TAB Prov:TASHIA BOWER MD 01/21/24 Sacubitril-Valsartan (Entresto 24-26 mg) 1 Tab Tab, 1 TAB PO BID for 30 Days, #60 TAB Prov:TASHIA BOWER MD 01/21/24 Metoprolol Succinate (Toprol Xl) 50 Mg Tab, 50 MG PO DAILY for 30 Days, #30 TAB Prov:TASHIA BOWER MD 01/21/24 Furosemide (Furosemide) 40 Mg Tab, 40 MG PO BIDD for 30 Days, #60 TAB Prov:TASHIA BOWER MD 01/21/24 Empagliflozin (Jardiance) 10 Mg Tab, 10 MG PO DAILY for 90 Days, #90 TAB Prov:TASHIA BOWER MD 01/21/24 Atorvastatin Calcium (ATORVASTATIN CALCIUM) 20 Mg Tab, 40 MG PO HS for 90 Days, #180 TAB Prov:TASHIA BOWER MD 01/21/24 Aspirin (Aspirin Low Dose) 81 Mg Tab, 81 MG PO DAILY for 90 Days, #90 TAB Prov:TASHIA BOWER MD 01/21/24 Home Meds Home medications reviewed. Current Medications Current Medications Medications (Trade) Dose Ordered Sig/Von Route PRN Reason Start Time Stop Time Status Last Admin Nitroglycerin (Ntrostat Sublingual) 0.4 mg Q5MINP PRN SL FOR CHEST PAIN 03/19/24 20:00 Morphine Sulfate 2 mg Q30M PRN IV FOR CHEST PAIN 03/19/24 20:00 Empaglifozin (Jardiance) 10 mg DAILY PO 03/20/24 10:00 Valsartan (Diovan) 160 mg DAILY PO 03/20/24 10:00 Metoprolol Succinate (Toprol Xl) 50 mg DAILY PO 03/20/24 10:00 Furosemide (Lasix Injection) 20 mg BIDD IV 03/20/24 06:00 03/20/24 06:00 Atorvastatin Calcium (Lipitor) 20 mg HS PO 03/19/24 22:00 03/20/24 01:01 Ondansetron HCl (Zofran) 4 mg Q4HP PRN IV NAUSEA / VOMITING 03/19/24 20:30 Enoxaparin Sodium (Lovenox) 40 mg DAILY SC 03/20/24 10:00 Acetaminophen (Tylenol Tablet) 650 mg Q6HP PRN PO PAIN SCALE 1-3 OR TEMP>100.4 03/19/24 20:30 Review of Systems Constitutional: No symptom reported Ears, Nose, & Throat: No symptom reported Eyes: No symptom reported Neurological: No symptoms reported Pulmonary/Respiratory: Shortness of breath Cardiovascular: Bilateral lower extremity edema Gastrointestinal: No symptom reported Genitourinary: No symptom reported Musculoskeletal: No symptom reported Skin: No symptom reported Psychiatric: No symptom reported Endocrine: No symptom reported Hematologic/Lymphatic: No symptom reported Vital Signs Vital Signs Date Time Temp Pulse Resp B/P (MAP) Pulse Ox O2 Delivery O2 Flow Rate FiO2 03/20/24 06:00 143/100 03/20/24 05:00 89 20 93 03/20/24 03:30 Room Air* 0 21 03/20/24 03:30 97.8 97.8 Physical Exam General Appearance: Cooperative. Well-developed. Well-nourished. No acute distress. Pulmonary/Respiratory: Clear, bilateral breaths sounds. Cardiovascular/Chest: Regular rate and rhythm. Peripheral Pulses: 2+ Radial (R). 2+ Radial (L). 1+ Pedal (R). 1+ Pedal (L) Abdominal Exam: Normal bowel sounds. Ankle Exam: 3+ pitting edema Lower extremities: 3+ pitting edema Neuro/Mental Status: A/OX4, coherent. Thoughts/Psych: Normal thought pattern. Appropriate mood and affect. Good judgment and insight. Appearance: No acute distress. Skin Exam: Normal inspection. Normal color. Warm and dry. Labs/Diagnostic Data Labs Test 03/20/24 06:25 03/19/24 20:00 03/19/24 17:22 03/19/24 16:52 Range/Units Sodium Level 141 136-145 mmol/L Potassium Level 3.9 3.5-5.1 mmol/L Chloride Level 107 98-107 mmol/L Carbon Dioxide Level 24 20-31 mmol/L Anion Gap 10 5-15 Blood Urea Nitrogen 21 9-23 mg/dL Creatinine 1.17 0.700-1.30 mg/dL Glomerular Filtration Rate Calc 72 >90 mL/min BUN/Creatinine Ratio 17.9 10.0-20.0 Serum Glucose 135 H 74-106 mg/dL Calcium Level 9.8 8.7-10.4 mg/dL Magnesium Level 1.7 1.6-2.6 mg/dL Triglycerides Level 76 < 150 mg/dL Cholesterol Level 99 < 200 mg/dL LDL Cholesterol 64 < 100 mg/dL HDL Cholesterol 24 L 40-59 mg/dL Troponin I High Sensitivity 331 *H </=54 ng/L White Blood Count 8.5 4.4-10.8 10^3/uL Red Blood Count 5.88 4.5-5.90 10^6/uL Hemoglobin 14.5 13.5-17.5 g/dL Hematocrit 45.8 41.0-53.0 % Mean Corpuscular Volume 77.9 L 80.0-100.0 fL Mean Corpuscular Hemoglobin 24.7 L 28.0-32.0 pg Mean Corpuscular Hemoglobin Concent 31.7 L 32.0-36.0 g/dL Red Cell Distribution Width 17.2 H 11.8-14.3 % Platelet Count 338 140-450 10^3/uL Mean Platelet Volume 8.3 6.9-10.8 fL Neutrophils (%) (Auto) 65.6 37.0-80.0 % Lymphocytes (%) (Auto) 24.6 10.0-50.0 % Monocytes (%) (Auto) 7.7 0.0-12.0 % Eosinophils (%) (Auto) 0.8 0.0-7.0 % Basophils (%) (Auto) 1.3 0.0-2.0 % Neutrophils # (Auto) 5.6 1.6-8.6 10 ^3/uL Lymphocytes # (Auto) 2.1 0.4-5.4 10 ^3/uL Monocytes # (Auto) 0.7 0-1.3 10 ^3/uL Eosinophils # (Auto) 0.1 0-0.8 10 ^3/uL Basophils # (Auto) 0.1 0-0.2 10 ^3/uL Nucleated Red Blood Cells 0.9 % Total Bilirubin 2.2 H 0.2-1.0 mg/dL Aspartate Amino Transferase (AST) 38 13-40 U/L Alanine Aminotransferase (ALT) 48 H 7-40 U/L Alkaline Phosphatase 143 H 46-116 U/L B-Type Natriuretic Peptide 2996.41 0-100 pg/mL Total Protein 6.9 5.7-8.2 g/dL Albumin 4.2 3.2-4.8 g/dL Urine Color Yellow Yellow Urine Clarity Clear Clear Urine pH 5.5 5.0-9.0 Urine Specific [place] 1.022 1.001-1.035 Urine Protein 2+ H Negative Urine Ketones Negative Negative Urine Blood 1+ H Negative /uL Urine Nitrite Negative Negative Urine Bilirubin 1+ Negative Urine Urobilinogen 6 Negative mg/dL Urine Leukocyte Esterase Negative Negative /uL Urine RBC 1 0 - 3 /hpf Urine Microscopic WBC 1 0-3 /HPF Urine Squamous Epithelial Cells Few <5 /hpf Urine Bacteria None seen None Seen /hpf Urine Hyaline Casts Few 0 - 2 /lpf Urine Mucus Few None Seen Urine Glucose Normal Normal mg/dL Assessment Acute on chronic decompensated HFrEF, NYHA class III NSTEMI, type II secondary to above Nonischemic cardiomyopathy Hypertension Moderately severe aortic valve regurgitation Tricuspid and mitral valve regurgitation, 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 Type 2 diabetes mellitus Tobacco use Morbid obesity Medical noncompliance Plan/Recommendation We will continue with the following plan/recommendations (Dr. Alex): * Previous transthoracic echocardiogram from 01/16/24 reveals EF 15%, RVSP 45 mmHg * Initiate guideline directed medical therapy for CHF as tolerated * Initiate beta damaris after patient properly diuresed * Strict intake and output, daily weights, maintain fluid restriction * Diuresis as tolerated * Continuous telemetry monitoring * LifeVest * Risk factor modifications, counseled * Adherence to medication therapy Case discussed and reviewed with . Thank you for allowing us to care for this patient. Please call with any questions or concerns. Critical care time spent: 42 minutes This medical document was created using an electronic medical record system with voice recognition software and computerized dictation system. Although this document has been carefully reviewed, there might still be some phonetic and typographical errors. Occasional wrong-word or ``sound-alike substitutions m ay have occurred due to the inherent limitations of voice recognition software. These areas are purely typographical due to imperfections of the software programs and do not reflect any compromise in the patient's medical care. Please read the chart carefully and recognize, using context, where these substitutions have occurred. Plan discussed with: Patient NYHA Physical activity limitations: Class3(Marked) ordinary (activity causes symtoms) Date of Service: Mar 20, 2024 Billing Provider: BILL WELCH Cardiology Common Codes: [id number] INP/OBS CARE (High) Cardiology Consultation Codes: [id number] CONSULT <45MIN DEVON ALEX DO 03/20/247: Family History: Hypertension G8 FATHER Sickle cell trait in mother G8 MOTHER Allergies: Coded Allergies: NO KNOWN ALLERGIES (Unverified , 01/15/24) Home Meds Active Scripts Spironolactone (Aldactone) 25 Mg Tab, 25 MG PO DAILY for 90 Days, #90 TAB Prov:TASHIA BOWER MD 01/21/24 Sacubitril-Valsartan (Entresto 24-26 mg) 1 Tab Tab, 1 TAB PO BID for 30 Days, #60 TAB Prov:TASHIA BOWER MD 01/21/24 Metoprolol Succinate (Toprol Xl) 50 Mg Tab, 50 MG PO DAILY for 30 Days, #30 TAB Prov:TASHIA BOWER MD 01/21/24 Furosemide (Furosemide) 40 Mg Tab, 40 MG PO BIDD for 30 Days, #60 TAB Prov:TASHIA BOWER MD 01/21/24 Empagliflozin (Jardiance) 10 Mg Tab, 10 MG PO DAILY for 90 Days, #90 TAB Prov:TASHIA BOWER MD 01/21/24 Atorvastatin Calcium (ATORVASTATIN CALCIUM) 20 Mg Tab, 40 MG PO HS for 90 Days, #180 TAB Prov:TASHIA BOWER MD 01/21/24 Aspirin (Aspirin Low Dose) 81 Mg Tab, 81 MG PO DAILY for 90 Days, #90 TAB Prov:TASHIA BOWER MD 01/21/24 Plan/Recommendation Patient encounter was reviewed and discussed with Bill Welch NP. All history, meds, vitals, labs, and imaging were reviewed with her. I agree with her A/P which was formulated with me. Plan discussed with: Patient Date of Service: Mar 20, 2024 Billing Provider: DEVON ALEX DO Cardiology Common Codes: [id number] INP/OBS CARE (High) BILL WELCH Mar 20, 2024 09:58 DEVON ALEX DO Mar 20, 2024 21:47
[2024-03-20] MEDS ORDERED: METOPROLOL SUCCINATE XL 50 MG TAB PO SCH (10:00)
[2024-03-20] MEDS: EMPAGLIFLOZIN 10 MG TAB PO SCH (10:31)
[2024-03-20] MEDS: VALSARTAN 80 MG TAB PO SCH (10:31)
[2024-03-20] MEDS: SPIRONOLACTONE 25 MG TAB PO SCH (10:31)
[2024-03-20] MEDS: ENOXAPARIN SOD 40 MG/0.4 ML SYRINGE SC SCH (10:32)
--- NOTE | 2024-03-20 12:24 | DVHPN2 ---
Reviewed: Care Plan, H&P, Labs, Medications, Previous Orders, Radiology Changes from previous H/P or p: No Changes Objective Vitals Vital Signs Date Time Temp Pulse Resp B/P (MAP) Pulse Ox O2 Delivery O2 Flow Rate FiO2 03/20/24 10:31 132/92 03/20/24 09:00 97.5 92 20 98 97.5 03/20/24 08:00 Nasal Cannula* 2 28 Intake/Output Intake and Output 03/20/24 07:00 Intake Total 420 ml Output Total 1000 ml Balance -580 ml Intake Oral 420 ml Output Urine Total 1000 ml Medications Current Medications Medications Dose Ordered Sig/Von Route Start Time Stop Time Status Last Admin Dose Admin Nitroglycerin 0.4 mg Q5MINP PRN SL 03/19/24 20:00 Morphine Sulfate 2 mg Q30M PRN IV 03/19/24 20:00 Empaglifozin 10 mg DAILY PO 03/20/24 10:00 03/20/24 10:31 10 MG Valsartan 160 mg DAILY PO 03/20/24 10:00 03/20/24 10:31 160 MG Furosemide 20 mg BIDD IV 03/20/24 06:00 03/20/24 06:00 20 MG Atorvastatin Calcium 20 mg HS PO 03/19/24 22:00 03/20/24 01:01 20 MG Ondansetron HCl 4 mg Q4HP PRN IV 03/19/24 20:30 Enoxaparin Sodium 40 mg DAILY SC 03/20/24 10:00 03/20/24 10:32 40 MG Acetaminophen 650 mg Q6HP PRN PO 03/19/24 20:30 Spironolactone 25 mg DAILY PO 03/20/24 10:00 03/20/24 10:31 25 MG Laboratory Results Laboratory Tests 03/19/24 17:22 03/20/24 06:25 Chemistry Test 03/19/24 17:22 03/20/24 06:25 Albumin 4.2 g/dL (3.2-4.8) Calcium Level 9.8 mg/dL (8.7-10.4) 9.8 mg/dL (8.7-10.4) Total Protein 6.9 g/dL (5.7-8.2) Magnesium Level 1.7 mg/dL (1.6-2.6) Lipid panel Test 03/20/24 06:25 Cholesterol Level 99 mg/dL (< 200) HDL Cholesterol 24 mg/dL (40-59) L Triglycerides Level 76 mg/dL (< 150) Cardiac Markers Test 03/19/24 17:22 B-Type Natriuretic Peptide 2996.41 pg/mL (0-100) LFT Test 03/19/24 17:22 Alanine Aminotransferase (ALT) 48 U/L (7-40) H Alkaline Phosphatase 143 U/L (46-116) H Aspartate Amino Transferase (AST) 38 U/L (13-40) Total Bilirubin 2.2 mg/dL (0.2-1.0) H HgA1c, TSH Test 03/20/24 06:25 Hemoglobin A1c 6.6 % A1C (<5.7) H Thyroid Stimulating Hormone (TSH) 1.60 uIU/mL (0.55-4.78) Urinalysis Test 03/19/24 16:52 Urine Color Yellow (Yellow) Urine Clarity Clear (Clear) Urine pH 5.5 (5.0-9.0) Urine Specific [place] 1.022 (1.001-1.035) Urine Protein 2+ (Negative) H Urine Ketones Negative (Negative) Urine Blood 1+ /uL (Negative) H Urine Nitrite Negative (Negative) Urine Bilirubin 1+ (Negative) Urine Urobilinogen 6 mg/dL (Negative) Urine Leukocyte Esterase Negative /uL (Negative) Urine RBC 1 /hpf (0 - 3) Urine Microscopic WBC 1 /HPF (0-3) Urine Squamous Epithelial Cells Few /hpf (<5) Urine Bacteria None seen /hpf (None Seen) Urine Hyaline Casts Few /lpf (0 - 2) Urine Mucus Few (None Seen) Urine Glucose Normal mg/dL (Normal) Labs and/or images reviewed: Labs reviewed by me, Image(s) reviewed by me Assessment/Plan Assessment/Plan Acute on chronic decompensated HFrEF, NYHA class III ejection fraction 15 % on 01-16-24 cardiology consult appreciated, Estephania Ventura Aldactone Nonischemic cardiomyopathy Hypertension Hypercholesterolemia: Lipitor Moderately severe aortic valve regurgitation Tricuspid and mitral valve regurgitation, 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 Type 2 diabetes mellitus Tobacco use Morbid obesity Medication noncompliance Time spent 65 minutes Patient is full code Advanced care planning time 20 mts Plan discussed with: Patient Date of Service: Mar 20, 2024 Billing Provider: JANIE MENDEZ MD Common Visit Codes: [id number] CARE 30-74 MIN JANIE MENDEZ MD Mar 20, 2024 12:24
[2024-03-20] MEDS: ALBUTEROL SULF 2.5 MG/0.5ML(0.5%) NEB SOLN ONE (13:29)
[2024-03-20] MEDS: ALBUTEROL SULF 2.5 MG/0.5ML(0.5%) NEB SOLN NEB SCH (18:14)
[2024-03-21] VITALS (17 sets, daily range): BP systolic 133–152; BP diastolic 91–107; PULSE 79–94; RESP 14–24; TEMP 97.4–98.4; O2SAT 96–100
[2024-03-21] MEDS: FUROSEMIDE 40 MG/4 ML VIAL IV SCH (05:15)
[2024-03-21] MEDS: MORPHINE SULFATE INJ 2 MG/ml SYRG IV PRN (05:16)
--- NOTE | 2024-03-21 10:05 | DVHPN2 ---
Reviewed: Care Plan, H&P, Labs, Medications, Previous Orders, Radiology Changes from previous H/P or p: No Changes Objective Vitals Vital Signs Date Time Temp Pulse Resp B/P (MAP) Pulse Ox O2 Delivery O2 Flow Rate FiO2 03/21/24 09:52 84 16 100 03/21/24 09:45 Room Air* 0 21 03/21/24 05:46 135/87 03/21/24 05:00 98.4 98.4 Intake/Output Intake and Output 03/21/24 07:00 Intake Total 1796 ml Output Total 4175 ml Balance -2379 ml Intake Oral 1796 ml Output Urine Total 4175 ml # Bowel Movements 3 Medications Current Medications Medications Dose Ordered Sig/Von Route Start Time Stop Time Status Last Admin Dose Admin Nitroglycerin 0.4 mg Q5MINP PRN SL 03/19/24 20:00 Morphine Sulfate 2 mg Q30M PRN IV 03/19/24 20:00 03/21/24 05:16 2 MG Empaglifozin 10 mg DAILY PO 03/20/24 10:00 03/20/24 10:31 10 MG Valsartan 160 mg DAILY PO 03/20/24 10:00 03/20/24 10:31 160 MG Atorvastatin Calcium 20 mg HS PO 03/19/24 22:00 03/20/24 21:38 20 MG Ondansetron HCl 4 mg Q4HP PRN IV 03/19/24 20:30 Enoxaparin Sodium 40 mg DAILY SC 03/20/24 10:00 03/20/24 10:32 40 MG Acetaminophen 650 mg Q6HP PRN PO 03/19/24 20:30 Spironolactone 25 mg DAILY PO 03/20/24 10:00 03/20/24 10:31 25 MG Albuterol 2.5 mg Q4HR NEB 03/20/24 14:00 03/21/24 09:45 2.5 MG Furosemide 40 mg BIDD IV 03/21/24 06:00 03/21/24 05:15 40 MG Laboratory Results Laboratory Tests 03/19/24 17:22 03/20/24 06:25 Urinalysis Test 03/19/24 16:52 Urine Color Yellow (Yellow) Urine Clarity Clear (Clear) Urine pH 5.5 (5.0-9.0) Urine Specific [place] 1.022 (1.001-1.035) Urine Protein 2+ (Negative) H Urine Ketones Negative (Negative) Urine Blood 1+ /uL (Negative) H Urine Nitrite Negative (Negative) Urine Bilirubin 1+ (Negative) Urine Urobilinogen 6 mg/dL (Negative) Urine Leukocyte Esterase Negative /uL (Negative) Urine RBC 1 /hpf (0 - 3) Urine Microscopic WBC 1 /HPF (0-3) Urine Squamous Epithelial Cells Few /hpf (<5) Urine Bacteria None seen /hpf (None Seen) Urine Hyaline Casts Few /lpf (0 - 2) Urine Mucus Few (None Seen) Urine Glucose Normal mg/dL (Normal) Labs and/or images reviewed: Labs reviewed by me, Image(s) reviewed by me Assessment/Plan Assessment/Plan Acute on chronic decompensated HFrEF, NYHA class III ejection fraction 15 % on 01-16-24 cardiology consult appreciated, Estephania Rashid Diovan Aldactone Nonischemic cardiomyopathy Hypertension Hypercholesterolemia: Lipitor Moderately severe aortic valve regurgitation Tricuspid and mitral valve regurgitation, 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 Type 2 diabetes mellitus Tobacco use Morbid obesity Medication noncompliance Time spent 55 minutes Patient is full code Advanced care planning time 20 mts Pt Moved to the [facility] from [place]: Social service consult for new PCP Plan discussed with: Patient My Orders Orders - JANIE MENDEZ MD Procedure Category Date Status Time * Running Instructor CONS 03/20/24 Transmitted Consult Albuterol Medneb PHA 03/20/24 In Process (Ventolin Medneb) 14:00 Date of Service: Mar 21, 2024 Billing Provider: JANIE MENDEZ MD Common Visit Codes: [id number] INP/OBS CARE([facility]) JANIE MENDEZ MD Mar 21, 2024 10:05
[2024-03-21] MEDS: ACETAMINOPHEN 325 MG TAB PO PRN (10:51)
--- NOTE | 2024-03-21 13:57 | DVHPN2 ---
BILL GARZA [facility] 03/21/24 1357: Consult Progress Note Subjective Other Systems: Patient remains in normal sinus rhythm at time of assessment. The patient had an episode of right-sided chest pain in which a twelve lead electrocardiogram was obtained and reveals normal sinus rhythm with nonspecific changes to lateral leads. Chest pain is reproducible upon palpation. The patient also mentions right sided chest discomfort with deep inhalation. Objective vital signs Vital Sign Date Time Temp Pulse Resp B/P (MAP) Pulse Ox O2 Delivery O2 Flow Rate FiO2 03/21/24 13:46 98 Room Air 0.0 03/21/24 13:46 21 03/21/24 13:46 82 18 03/21/24 12:00 98.3 133/100 (111) 98.3 Total Intake and Output 03/20/24 03/20/24 03/21/24 15:00 23:00 07:00 Intake Total 1040 ml 756 ml Output Total 1300 ml 2875 ml Balance -260 ml -2119 ml medications Current Medications Medications Dose Ordered Sig/Von Route Start Time Stop Time Status Last Admin Dose Admin Nitroglycerin 0.4 mg Q5MINP PRN SL 03/19/24 20:00 Morphine Sulfate 2 mg Q30M PRN IV 03/19/24 20:00 03/21/24 11:44 2 MG Empaglifozin 10 mg DAILY PO 03/20/24 10:00 03/21/24 10:00 10 MG Valsartan 160 mg DAILY PO 03/20/24 10:00 03/21/24 10:52 160 MG Atorvastatin Calcium 20 mg HS PO 03/19/24 22:00 03/20/24 21:38 20 MG Ondansetron HCl 4 mg Q4HP PRN IV 03/19/24 20:30 Enoxaparin Sodium 40 mg DAILY SC 03/20/24 10:00 03/21/24 10:58 40 MG Acetaminophen 650 mg Q6HP PRN PO 03/19/24 20:30 03/21/24 10:51 650 MG Spironolactone 25 mg DAILY PO 03/20/24 10:00 03/21/24 10:52 25 MG Albuterol 2.5 mg Q4HR NEB 03/20/24 14:00 03/21/24 13:46 2.5 MG Furosemide 40 mg BIDD IV 03/21/24 06:00 03/21/24 05:15 40 MG Examination: GENERAL:Normal, LUNGS:Normal, CVS:Normal, NEURO:Normal laboratory and microbiology Laboratory Tests 03/20/24 06:25 03/19/24 17:22 Test 03/20/24 06:25 Range/Units Serum Glucose 135 H 74-106 mg/dL Problem List/Assessment/Plan Problem List/Assessment/Plan Acute on chronic decompensated HFrEF, NYHA class III NSTEMI, type II secondary to above Nonischemic cardiomyopathy Hypertension Moderately severe aortic valve regurgitation Tricuspid and mitral valve regurgitation, 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 Type 2 diabetes mellitus Tobacco use Morbid obesity Medical noncompliance Plan/Recommendation (Dr. Schafer): * Previous transthoracic echocardiogram from 01/16/24 reveals EF 15%, RVSP 45 mmHg * Continue guideline directed medical therapy for CHF as tolerated * Strict intake and output, daily weights, maintain fluid restriction * Diuresis as tolerated * Continuous telemetry monitoring * LifeVest * Risk factor modifications, counseled * Adherence to medication therapy Case discussed and reviewed with . Attempted to obtain LifeVest for patient. Per delinquency prevention social worker, the patients insurance does not cover the cost for LifeVest. Scoreboard Operator discussed with the patient if he is willing to pay [id number] for LifeVest. There is no further inpatient cardiac workup indicated at this time. Patient educated that he needs to establish and follow up with a pipeline inspector in the outpatient setting within 1-2 weeks post discharge. Thank you for allowing us to care for this patient. Please call with any questions or concerns. This medical document was created using an electronic medical record system with voice recognition software and computerized dictation system. Although this document has been carefully reviewed, there might still be some phonetic and typographical errors. Occasional wrong-word or ``sound-alike substitutions may have occurred due to the inherent limitations of voice recognition software. These areas are purely typographical due to imperfections of the software programs and do not reflect any compromise in the patient's medical care. Please read the chart carefully and recognize, using context, where these substitutions have occurred. Plan discussed with: Patient Date of Service: Mar 21, 2024 Billing Provider: BILL GARZA Common Visit Codes: [id number] INP/OBS CARE(HIGH) MARJ SCHAFER MD 03/21/24 1500: Consult Progress Note Problem List/Assessment/Plan Problem List/Assessment/Plan pt seen with CV resident, agree with WIRE ROLLER plan above, denied lifevest from insurance, pt is not compliant, high risk for readmit or morbidity and , must start taking his HF meds , avoid drugs BILL GARZA Mar 21, 2024 13:57 MARJ SCHAFER MD Mar 21, 2024 15:00
[2024-03-22] VITALS (17 sets, daily range): BP systolic 132–143; BP diastolic 85–101; PULSE 85–123; RESP 16–22; TEMP 97.3–98.6; O2SAT 91–100
[2024-03-22] MEDS: NITROGLYCERIN 0.4 MG SL TAB SL PRN (05:15)
--- NOTE | 2024-03-22 09:59 | DVHPN2 ---
Reviewed: Care Plan, H&P, Labs, Medications, Previous Orders, Radiology Changes from previous H/P or p: No Changes Objective Vitals Vital Signs Date Time Temp Pulse Resp B/P (MAP) Pulse Ox O2 Delivery O2 Flow Rate FiO2 03/22/24 09:00 98.3 90 20 132/92 (105) 97 98.3 03/22/24 06:47 Nasal Cannula* 3 32 Intake/Output Intake and Output 03/22/24 07:00 Intake Total 1920 ml Output Total 3550 ml Balance -1630 ml Intake Oral 1920 ml Output Urine Total 3550 ml Medications Current Medications Medications Dose Ordered Sig/Von Route Start Time Stop Time Status Last Admin Dose Admin Nitroglycerin 0.4 mg Q5MINP PRN SL 03/19/24 20:00 03/22/24 05:15 0.4 MG Morphine Sulfate 2 mg Q30M PRN IV 03/19/24 20:00 03/21/24 11:44 2 MG Empaglifozin 10 mg DAILY PO 03/20/24 10:00 03/21/24 10:00 10 MG Valsartan 160 mg DAILY PO 03/20/24 10:00 03/21/24 10:52 160 MG Atorvastatin Calcium 20 mg HS PO 03/19/24 22:00 03/21/24 21:34 20 MG Ondansetron HCl 4 mg Q4HP PRN IV 03/19/24 20:30 Enoxaparin Sodium 40 mg DAILY SC 03/20/24 10:00 03/21/24 10:58 40 MG Acetaminophen 650 mg Q6HP PRN PO 03/19/24 20:30 03/21/24 10:51 650 MG Spironolactone 25 mg DAILY PO 03/20/24 10:00 03/21/24 10:52 25 MG Albuterol 2.5 mg Q4HR NEB 03/20/24 14:00 03/22/24 06:47 2.5 MG Furosemide 40 mg BIDD IV 03/21/24 06:00 03/22/24 05:14 40 MG Metoprolol Succinate 25 mg DAILY PO 03/22/24 10:00 Laboratory Results Laboratory Tests 03/19/24 17:22 03/20/24 06:25 Urinalysis Test 03/19/24 16:52 Urine Color Yellow (Yellow) Urine Clarity Clear (Clear) Urine pH 5.5 (5.0-9.0) Urine Specific [place] 1.022 (1.001-1.035) Urine Protein 2+ (Negative) H Urine Ketones Negative (Negative) Urine Blood 1+ /uL (Negative) H Urine Nitrite Negative (Negative) Urine Bilirubin 1+ (Negative) Urine Urobilinogen 6 mg/dL (Negative) Urine Leukocyte Esterase Negative /uL (Negative) Urine RBC 1 /hpf (0 - 3) Urine Microscopic WBC 1 /HPF (0-3) Urine Squamous Epithelial Cells Few /hpf (<5) Urine Bacteria None seen /hpf (None Seen) Urine Hyaline Casts Few /lpf (0 - 2) Urine Mucus Few (None Seen) Urine Glucose Normal mg/dL (Normal) Labs and/or images reviewed: Labs reviewed by me, Image(s) reviewed by me Assessment/Plan Assessment/Plan Acute on chronic decompensated HFrEF, NYHA class III ejection fraction 15 % on 01-16-24 cardiology consult appreciated, Estephania Rashid Diovan Aldactone, recommended Zolls vest, patient's insurance not covering Zolls vest , delinquency prevention social worker trying to help him out < Nonischemic cardiomyopathy Hypertension Hypercholesterolemia: Lipitor Moderately severe aortic valve regurgitation Tricuspid and mitral valve regurgitation, 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 Type 2 diabetes mellitus Tobacco use Morbid obesity Medication noncompliance Time spent 55 minutes Patient is full code Advanced care planning time 20 mts Pt Moved to the [facility] from [place]: Social service consult for new PCP Plan discussed with: Patient My Orders Orders - JANIE MENDEZ MD Procedure Category Date Status Time * Scagliola Mechanic CONS 03/21/24 Transmitted Consult Electrocardigram EKG 03/22/24 Logged 05:36 Date of Service: Mar 22, 2024 Billing Provider: JANIE MENDEZ MD Common Visit Codes: [id number] INP/OBS CARE([facility]) JANIE MENDEZ MD Mar 22, 2024 09:59
[2024-03-22] MEDS: METOPROLOL SUCCINATE XL 50 MG TAB PO SCH (10:59)
--- NOTE | 2024-03-22 11:11 | ECG ---
[facility] Test Date: 2024-03-22 Test Time: 05:00:56 Pat Name: ALMA TERRY Department: Respiratoy Room: 0247T B Gender: M Print Production Coordinator: FELIPA : 1965 Requested By: JANIE MENDEZ Order Number: [id number] Reading MD: Adalid Unger Measurements Intervals [place] Rate: 97 P: 46 VT: 166 QRS: -20 QRSD: 109 T: 131 QT: 402 QTc: 511 Interpretive Statements Incomplete analysis due to missing data in precordial lead(s) Sinus rhythm Borderline left axis deviation Consider anterolateral infarct Borderline ST depression, lateral leads Minimal ST elevation, inferior leads Prolonged QT interval Baseline wander in lead(s) I,II,III,aVR,aVF,V2,V4,V5,V6 Missing lead(s): V1,V3 Electronically Signed On 03-24-2024 8:16:04 PST by Adalid Unger Please click the below link to view image of tracing.
[2024-03-23] VITALS (37 sets, daily range): BP systolic 125–149; BP diastolic 70–98; PULSE 83–98; RESP 17–20; TEMP 98.1–98.8; O2SAT 93–100
--- NOTE | 2024-03-23 11:50 | DVHPN2 ---
Reviewed: Care Plan, H&P, Labs, Medications, Previous Orders, Radiology Changes from previous H/P or p: No Changes Objective Vitals Vital Signs Date Time Temp Pulse Resp B/P (MAP) Pulse Ox O2 Delivery O2 Flow Rate FiO2 03/23/24 09:39 87 144/85 03/23/24 09:00 98.2 18 100 98.2 03/23/24 08:26 Nasal Cannula 4.0 03/23/24 08:26 36 Intake/Output Intake and Output 03/23/24 07:00 Intake Total 1149 ml Output Total 5200 ml Balance -4051 ml Intake Oral 1149 ml Output Urine Total 5200 ml Medications Current Medications Medications Dose Ordered Sig/Von Route Start Time Stop Time Status Last Admin Dose Admin Nitroglycerin 0.4 mg Q5MINP PRN SL 03/19/24 20:00 03/22/24 05:15 0.4 MG Morphine Sulfate 2 mg Q30M PRN IV 03/19/24 20:00 03/23/24 05:13 2 MG Empaglifozin 10 mg DAILY PO 03/20/24 10:00 03/23/24 09:38 10 MG Valsartan 160 mg DAILY PO 03/20/24 10:00 03/23/24 09:38 160 MG Atorvastatin Calcium 20 mg HS PO 03/19/24 22:00 03/22/24 21:10 20 MG Ondansetron HCl 4 mg Q4HP PRN IV 03/19/24 20:30 Enoxaparin Sodium 40 mg DAILY SC 03/20/24 10:00 03/23/24 09:37 40 MG Acetaminophen 650 mg Q6HP PRN PO 03/19/24 20:30 03/21/24 10:51 650 MG Spironolactone 25 mg DAILY PO 03/20/24 10:00 03/23/24 09:38 25 MG Albuterol 2.5 mg Q4HR NEB 03/20/24 14:00 03/23/24 08:22 2.5 MG Furosemide 40 mg BIDD IV 03/21/24 06:00 03/23/24 05:14 40 MG Metoprolol Succinate 25 mg DAILY PO 03/22/24 10:00 03/23/24 09:39 25 MG Laboratory Results Laboratory Tests 03/19/24 17:22 03/20/24 06:25 Urinalysis Test 03/19/24 16:52 Urine Color Yellow (Yellow) Urine Clarity Clear (Clear) Urine pH 5.5 (5.0-9.0) Urine Specific [place] 1.022 (1.001-1.035) Urine Protein 2+ (Negative) H Urine Ketones Negative (Negative) Urine Blood 1+ /uL (Negative) H Urine Nitrite Negative (Negative) Urine Bilirubin 1+ (Negative) Urine Urobilinogen 6 mg/dL (Negative) Urine Leukocyte Esterase Negative /uL (Negative) Urine RBC 1 /hpf (0 - 3) Urine Microscopic WBC 1 /HPF (0-3) Urine Squamous Epithelial Cells Few /hpf (<5) Urine Bacteria None seen /hpf (None Seen) Urine Hyaline Casts Few /lpf (0 - 2) Urine Mucus Few (None Seen) Urine Glucose Normal mg/dL (Normal) Labs and/or images reviewed: Labs reviewed by me, Image(s) reviewed by me Assessment/Plan Assessment/Plan Acute on chronic decompensated HFrEF, NYHA class III ejection fraction 15 % on 01-16-24 cardiology consult appreciated, Estephania Ventura Aldactone, recommended Zolls vest, patient's insurance not covering Zolls vest , social media community manager trying to help him out < Nonischemic cardiomyopathy Hypertension Hypercholesterolemia: Lipitor Moderately severe aortic valve regurgitation Tricuspid and mitral valve regurgitation, 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 Type 2 diabetes mellitus Tobacco use Morbid obesity Medication noncompliance Time spent 55 minutes Patient is full code Advanced care planning time 20 mts Pt Moved to the [facility] from [place]: Social service working on getting him Zolls [place] Plan discussed with: Patient Date of Service: Mar 23, 2024 Billing Provider: JANIE MENDEZ MD Common Visit Codes: [id number] INP/OBS CARE([facility]) JANIE MENDEZ MD Mar 23, 2024 11:50
[2024-03-24] VITALS (18 sets, daily range): BP systolic 123–149; BP diastolic 79–86; PULSE 77–98; RESP 16–20; TEMP 97.4–98.7; O2SAT 95–100
--- NOTE | 2024-03-24 12:35 | DVHPN2 ---
Reviewed: Care Plan, H&P, Labs, Medications, Previous Orders, Radiology Changes from previous H/P or p: No Changes Objective Vitals Vital Signs Date Time Temp Pulse Resp B/P (MAP) Pulse Ox O2 Delivery O2 Flow Rate FiO2 03/24/24 10:04 78 18 100 03/24/24 09:56 Nasal Cannula 3.0 03/24/24 09:56 32 03/24/24 09:43 131/79 03/24/24 09:00 97.6 97.6 Intake/Output Intake and Output 03/24/24 07:00 Intake Total 2000 ml Output Total 1625 ml Balance 375 ml Intake Oral 2000 ml Output Urine Total 1625 ml # Bowel Movements 2 Medications Current Medications Medications Dose Ordered Sig/Von Route Start Time Stop Time Status Last Admin Dose Admin Nitroglycerin 0.4 mg Q5MINP PRN SL 03/19/24 20:00 03/24/24 07:22 0.4 MG Morphine Sulfate 2 mg Q30M PRN IV 03/19/24 20:00 03/23/24 05:13 2 MG Empaglifozin 10 mg DAILY PO 03/20/24 10:00 03/24/24 09:41 10 MG Valsartan 160 mg DAILY PO 03/20/24 10:00 03/24/24 09:43 160 MG Atorvastatin Calcium 20 mg HS PO 03/19/24 22:00 03/23/24 21:39 20 MG Ondansetron HCl 4 mg Q4HP PRN IV 03/19/24 20:30 Enoxaparin Sodium 40 mg DAILY SC 03/20/24 10:00 03/24/24 09:41 40 MG Acetaminophen 650 mg Q6HP PRN PO 03/19/24 20:30 03/21/24 10:51 650 MG Spironolactone 25 mg DAILY PO 03/20/24 10:00 03/23/24 09:38 25 MG Albuterol 2.5 mg Q4HR NEB 03/20/24 14:00 03/24/24 09:56 2.5 MG Furosemide 40 mg BIDD IV 03/21/24 06:00 03/24/24 05:50 40 MG Metoprolol Succinate 25 mg DAILY PO 03/22/24 10:00 03/24/24 09:42 25 MG Laboratory Results Laboratory Tests 03/19/24 17:22 03/20/24 06:25 Urinalysis Test 03/19/24 16:52 Urine Color Yellow (Yellow) Urine Clarity Clear (Clear) Urine pH 5.5 (5.0-9.0) Urine Specific [place] 1.022 (1.001-1.035) Urine Protein 2+ (Negative) H Urine Ketones Negative (Negative) Urine Blood 1+ /uL (Negative) H Urine Nitrite Negative (Negative) Urine Bilirubin 1+ (Negative) Urine Urobilinogen 6 mg/dL (Negative) Urine Leukocyte Esterase Negative /uL (Negative) Urine RBC 1 /hpf (0 - 3) Urine Microscopic WBC 1 /HPF (0-3) Urine Squamous Epithelial Cells Few /hpf (<5) Urine Bacteria None seen /hpf (None Seen) Urine Hyaline Casts Few /lpf (0 - 2) Urine Mucus Few (None Seen) Urine Glucose Normal mg/dL (Normal) Labs and/or images reviewed: Labs reviewed by me, Image(s) reviewed by me Assessment/Plan Assessment/Plan Acute on chronic decompensated HFrEF, NYHA class III ejection fraction 15 % on 01-16-24 cardiology consult appreciated, Estephania Ventura Aldactone, recommended Zolls vest, patient's insurance not covering Zolls vest , social contact worker trying to help him out < Nonischemic cardiomyopathy Hypertension Hypercholesterolemia: Lipitor Moderately severe aortic valve regurgitation Tricuspid and mitral valve regurgitation, 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 Type 2 diabetes mellitus Tobacco use Morbid obesity Medication noncompliance Time spent 55 minutes Patient is full code Advanced care planning time 20 mts Pt Moved to the [facility] from [place]: Social service working on getting him Zolls [place] No New complaint Plan discussed with: Patient Date of Service: Mar 24, 2024 Billing Provider: JANIE MENDEZ MD Common Visit Codes: [id number] INP/OBS CARE([facility]) JANIE MENDEZ MD Mar 24, 2024 12:35
[2024-03-25] VITALS (13 sets, daily range): BP systolic 117–148; BP diastolic 74–99; PULSE 79–98; RESP 16–20; TEMP 98.1–98.7; O2SAT 95–100
--- NOTE | 2024-03-25 10:40 | ECG ---
[facility] Test Date: 2024-03-25 Test Time: 10:32:15 Pat Name: ALMA TERRY Department: Respiratoy Room: 0247T B Gender: M Electronic Health Records Specialist: : 1965 Requested By: JANIE MENDEZ Order Number: [id number] Reading MD: Adalid Unger Measurements Intervals [place] Rate: 82 P: 20 DE: 185 QRS: -47 QRSD: 90 T: 125 QT: 409 QTc: 478 Interpretive Statements Sinus rhythm Left atrial enlargement Left ventricular hypertrophy Inferior infarct, old Anterior Q waves, possibly due to LVH Lateral leads are also involved Baseline wander in lead(s) V1,V2 Electronically Signed On 03-27-2024 21:04:40 PST by Adalid Unger Please click the below link to view image of tracing.
[2024-03-25] MEDS ORDERED: FURO1TAB31 PO (11:01)
[2024-03-25] MEDS ORDERED: SPIR25TA PO (11:01)
[2024-03-25] MEDS ORDERED: VALS320T PO (11:01)
[2024-03-25] MEDS ORDERED: EMPA1TAB PO (11:01)
[2024-03-25] MEDS ORDERED: ATOR20TA PO (11:01)
[2024-03-25] MEDS ORDERED: METO25TA93 PO (11:01)
--- NOTE | 2024-03-25 11:06 | DVHDS2 ---
Discharge Summary Date of Admission Mar 19, 2024 at 19:56 Date of Discharge: Mar 25, 2024 Admitting Diagnosis Shortness of breath Wounds: None Labs/Diagnostic Data: Laboratory Results Test 03/20/24 06:25 03/19/24 20:00 03/19/24 17:22 03/19/24 16:52 Sodium Level 141 mmol/L (136-145) Potassium Level 3.9 mmol/L (3.5-5.1) Chloride Level 107 mmol/L (98-107) Carbon Dioxide Level 24 mmol/L (20-31) Anion Gap 10 (5-15) Blood Urea Nitrogen 21 mg/dL (9-23) Creatinine 1.17 mg/dL (0.700-1.30) Glomerular Filtration Rate Calc 72 mL/min (>90) BUN/Creatinine Ratio 17.9 (10.0-20.0) Serum Glucose 135 mg/dL (74-106) Hemoglobin A1c 6.6 % A1C (<5.7) Calcium Level 9.8 mg/dL (8.7-10.4) Magnesium Level 1.7 mg/dL (1.6-2.6) Triglycerides Level 76 mg/dL (< 150) Cholesterol Level 99 mg/dL (< 200) LDL Cholesterol 64 mg/dL (< 100) HDL Cholesterol 24 mg/dL (40-59) Thyroid Stimulating Hormone (TSH) 1.60 uIU/mL (0.55-4.78) Troponin I High Sensitivity 331 ng/L (</=54) White Blood Count 8.5 10^3/uL (4.4-10.8) Red Blood Count 5.88 10^6/uL (4.5-5.90) Hemoglobin 14.5 g/dL (13.5-17.5) Hematocrit 45.8 % (41.0-53.0) Mean Corpuscular Volume 77.9 fL (80.0-100.0) Mean Corpuscular Hemoglobin 24.7 pg (28.0-32.0) Mean Corpuscular Hemoglobin Concent 31.7 g/dL (32.0-36.0) Red Cell Distribution Width 17.2 % (11.8-14.3) Platelet Count 338 10^3/uL (140-450) Mean Platelet Volume 8.3 fL (6.9-10.8) Neutrophils (%) (Auto) 65.6 % (37.0-80.0) Lymphocytes (%) (Auto) 24.6 % (10.0-50.0) Monocytes (%) (Auto) 7.7 % (0.0-12.0) Eosinophils (%) (Auto) 0.8 % (0.0-7.0) Basophils (%) (Auto) 1.3 % (0.0-2.0) Neutrophils # (Auto) 5.6 10 ^3/uL (1.6-8.6) Lymphocytes # (Auto) 2.1 10 ^3/uL (0.4-5.4) Monocytes # (Auto) 0.7 10 ^3/uL (0-1.3) Eosinophils # (Auto) 0.1 10 ^3/uL (0-0.8) Basophils # (Auto) 0.1 10 ^3/uL (0-0.2) Nucleated Red Blood Cells 0.9 % Total Bilirubin 2.2 mg/dL (0.2-1.0) Aspartate Amino Transferase (AST) 38 U/L (13-40) Alanine Aminotransferase (ALT) 48 U/L (7-40) Alkaline Phosphatase 143 U/L (46-116) B-Type Natriuretic Peptide 2996.41 pg/mL (0-100) Total Protein 6.9 g/dL (5.7-8.2) Albumin 4.2 g/dL (3.2-4.8) Urine Color Yellow (Yellow) Urine Clarity Clear (Clear) Urine pH 5.5 (5.0-9.0) Urine Specific [place] 1.022 (1.001-1.035) Urine Protein 2+ (Negative) Urine Ketones Negative (Negative) Urine Blood 1+ /uL (Negative) Urine Nitrite Negative (Negative) Urine Bilirubin 1+ (Negative) Urine Urobilinogen 6 mg/dL (Negative) Urine Leukocyte Esterase Negative /uL (Negative) Urine RBC 1 /hpf (0 - 3) Urine Microscopic WBC 1 /HPF (0-3) Urine Squamous Epithelial Cells Few /hpf (<5) Urine Bacteria None seen /hpf (None Seen) Urine Hyaline Casts Few /lpf (0 - 2) Urine Mucus Few (None Seen) Urine Glucose Normal mg/dL (Normal) Other Laboratory Tests 03/20/24 06:03/19/24 17:22 Brief Hx & Hospital Course: 58-year-old male with a history of hypertension nonischemic cardiomyopathy hypercholesterolemia tricuspid and mitral regurgitation diabetes chronic tobacco abuse morbid obesity noncompliance recently moved from [place] to the [facility] came in complaining of shortness of breaths. Ejection fraction 15 percent in January 2024 cardiology consult was done placed on Lasix Jardiance and Diovan [place] heart Association class III Condition marginally improved. Orders placed for Zoloft [place] and social service technician working on arranging it. Patient being discharged home. Medications transmitted to the pharmacy. He was advised to follow up with his primary Dr in one week. 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 Patient was counseled about treatment plan, medications, possible side effects, patientverbalized understanding. All questions were answered to the best of my ability. This discharge took greater then 30 minutes in planning, reviewing documentation, counseling the patient, and discussing with other team members." ASSESSMENT ASSESSMENT Hospital Course Marginally improved Assessment Acute on chronic decompensated HFrEF, NYHA class III ejection fraction 15 % on 01-16-24 cardiology consult appreciated, Lasix Jardiance Diovan Aldactone, recommended Zolls vest, patient's insurance not covering Zolls vest , social service technician trying to help him out< Nonischemic cardiomyopathy Hypertension Hypercholesterolemia: Lipitor Moderately severe aortic valve regurgitation Tricuspid and mitral valve regurgitation, 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 Type 2 diabetes mellitus Tobacco use Morbid obesity Medication noncompliance Date of Service: Mar 25, 2024 Billing Provider: JANIE MENDEZ MD Common Visit Codes: 30436-XLT/OBS DISCH DAY >30min JANIE MENDEZ MD Mar 25, 2024 11:05
--- NOTE | 2024-03-25 13:59 | CONS ---
Pharmacy Clinical Information: CQM HF (ANTIHYPERGLYCEMIC DRUG). Patient's most recent Hemoglobin A1c is 6.6% from this visit; for patients diagnosed with diabetes, A1c goal is <7% per ADA guidelines. Not recommended to start antihyperglycemic medication at this time as patient is within goal. GLORIA LHEMAN PHARMACIST Mar 25, 2024 13:59
== END 2024-03-25 14:45 | disposition home or self-care (01) | DRG 280 ==
LOC: ER 16:31 → OVERFLOW 19:56 → TELE-EAST 19:57
PROVIDERS: ADMIT Family Medicine; ATTEND Family Medicine
DX: I11.0 Hypertensive heart disease with heart failure (principal); I50.23 Acute on chronic systolic (congestive) heart failure; I21.A1 Myocardial infarction type 2; I42.8 Other cardiomyopathies; I08.3 Combined rheumatic disorders of mitral, aortic and tricuspid valves; E78.00 Pure hypercholesterolemia, unspecified; E66.01 Morbid (severe) obesity due to excess calories; E11.9 Type 2 diabetes mellitus without complications; Z82.49 Family history of ischemic heart disease and other diseases of the circulatory system; Z83.2 Family history of diseases of the blood and blood-forming organs and certain disorders involving the immune mechanism; Z87.891 Personal history of nicotine dependence; Z91.199 Patient's noncompliance with other medical treatment and regimen due to unspecified reason; Z68.38 Body mass index [BMI] 38.0-38.9, adult; Z91.148 Patient's other noncompliance with medication regimen for other reason
CPT/HCPCS: 36415; 71045; 80048; 80053; 80061; 81001; 83036; 83735; 83880; 84443; 84484; 85025; 93005; 94640; G0378